=== PATIENT | male | born 1965 | race American Indian/Alaskan Native ===

== ENCOUNTER 2017-06-16 19:59 | Inpatient (IN) | payer OTHER ==
[2017-06-16] MEDS ORDERED: Iohexol 240 (50 ml) PO ONE (20:20)
[2017-06-16] MEDS ORDERED: Sodium Chloride 0.9% 1,000 ML IV STA (20:21)
[2017-06-16 20:44] LABS: BASO # 0.1 K/uL (0.0-0.2); BASO % 0.5 % (0.0-2.0); EOS # 0.1 K/uL (0.0-0.7); EOS % 0.4 % (0.0-4.0); HEMATOCRIT 45.7 % (35.0-51.0); LYMPH # 1.6 K/uL (1.0-4.3); LYMPH % 11.7 % (20.0-40.0); MEAN CELL VOLUME 92.9 fl (80.0-94.0); MEAN CORPUSCULAR HEMOGLOBIN 31.4 pg (27.0-31.0); MEAN CORPUSCULAR HGB CONC 33.7 g/dL (33.0-37.0); MONO # 0.9 K/uL (0.0-0.8); MONO % 6.7 % (0.0-10.0); NEUT # 11.2 K/uL (1.8-7.0); NEUT % 80.7 % (50.0-75.0); RED CELL DISTRIBUTION WIDTH 12.5 % (11.5-14.5); WHITE BLOOD COUNT 13.9 K/uL (4.8-10.8)
--- NOTE | 2017-06-16 20:50 | ED PDOC ---
HPI: Abdomen Time Seen by Provider: 06/16/17 20:08 Chief Complaint (Nursing): Abdominal Pain Chief Complaint (Provider): Abdominal pain History Per: Patient History/Exam Limitations: no limitations Onset/Duration Of Symptoms: Days (6) Additional Complaint(s): Patient is a 52 y/o male with a past medical history of hemorrhoids presenting to the emergency department for abdominal pain ongoing for six days. Reports that the pain began in the periumbilical area but sometimes occurs in his back or his right and left lower abdominal quadrants. Further reports initially having a good appetite but has been changing to a bland food intake in an attempt to improve the pain. Notes taking [place] water and Magnesium citrate without any significant relief. Denies fever, chills, urinary symptoms, nausea, vomiting, constipation, diarrhea, or other complaints. PCP none reported. Past Medical History Reviewed: Historical Data, Nursing Documentation, Vital Signs Vital Signs: Last Vital Signs Temp 98.6 F 06/17/17 15:32 Pulse 72 06/17/17 15:32 Resp 18 06/17/17 15:32 BP 146/78 06/17/17 15:32 Pulse Ox 100 06/17/17 16:11 - Medical History Other PMH: Hemorrhoids - Surgical History Other surgeries: Hemorrhoid surgery - Family History Family History: States: No Known Family Hx - Social History Current smoker - smoking cessation education provided: No Ex-Smoker (has not smoked in the last 12 months): No Alcohol: Social Drugs: Denies - Home Medications Home Medications: Ambulatory Orders Medication Instructions Recorded No Known Home Med 06/17/17 - Allergies Allergies/Adverse Reactions: Allergies Allergy/AdvReac Type Severity Reaction Status Date / Time No Known Allergies Allergy Verified 06/16/17 20:01 Review of Systems ROS Statement: Except As Marked, All Systems Reviewed And Found Negative Constitutional: Negative for: Fever, Chills Gastrointestinal: Positive for: Abdominal Pain. Negative for: Nausea, Vomiting , Diarrhea, Constipation Genitourinary Male: Negative for: Dysuria, Frequency, Hematuria Physical Exam - Reviewed Nursing Documentation Reviewed: Yes Vital Signs Reviewed: Yes - Physical Exam Appears: Positive for: Non-toxic, No Acute Distress Head Exam: Positive for: ATRAUMATIC, NORMOCEPHALIC Skin: Positive for: Warm, Dry Eye Exam: Positive for: EOMI, PERRL ENT: Negative for: Pharyngeal Erythema, Tonsillar Exudate Neck: Positive for: Painless ROM, Supple Cardiovascular/Chest: Positive for: Regular Rate, Rhythm, Chest Non Tender. Negative for: Murmur Respiratory: Positive for: Normal Breath Sounds. Negative for: Respiratory Distress Gastrointestinal/Abdominal: Positive for: Soft, Tenderness (RLQ and suprapubic ttp). Negative for: Mass, Distended, Guarding, Rebound Back: Positive for: Normal Inspection. Negative for: Decreased ROM Extremity: Positive for: Normal ROM. Negative for: Deformity Lymphatic: Negative for: Adenopathy Neurologic/Psych: Positive for: Alert. Negative for: Motor/Sensory Deficits - Laboratory Results Result Diagrams: 06/17/17 07:50 06/17/17 07:50 - ECG O2 Sat by Pulse Oximetry: 100 (RA) Pulse Ox Interpretation: Normal Medical Decision Making Medical Decision Making: Time: 20:20 Initial impression: Abdominal pain Differential diagnoses include but are not limited to appendicitis, colitis, diverticulitis, enteritis, and mesenteritis. Initial plan: Abdominal/pelvic CT scan ED Urine Dipstick Iohexol 50 mL PO Toradol 15 mL PO Normal Saline 1 L IV Reevaluation Time: 23:11 CT AP IMPRESSION: 1. Rim-enhancing fluid collection within the right lower quadrant consistent with an abscess. Given nonvisualized appendix, this is concerning for acute appendicitis with perforation and abscess formation. RECOMMEND surgical consultation. 2. Wall thickening of the terminal ileum is likely reactive. 3. Urinary bladder wall thickening is likely accentuated by bladder decompression. Correlate also for cystitis. 4. Mild elevation of the right ureter and renal pelvis is likely related to the inflammatory process within the right lower quadrant. ALVARO Lopez Surgery oncall ALVARO Reid Hospitalist ALVARO Mera president [place] DW pt findings and plan of care. IV antibiotics, NPO, IVF. Scribe Attestation: Documented by Garima Sommers, acting as a scribe for Stefanie Guerra MD. Provider Scribe Attestation: All medical record entries made by the Scribe were at my direction and personally dictated by me. I have reviewed the chart and agree that the record accurately reflects my personal performance of the history, physical exam, medical decision making, and the department course for this patient. I have also personally directed, reviewed, and agree with the discharge instructions and disposition. Disposition - Clinical Impression Clinical Impression: Appendicitis with abscess - Patient ED Disposition Is Patient to be Admitted: Yes Counseled Patient/Family Regarding: Studies Performed, Diagnosis - Disposition Disposition Time: 23:00 Condition: GUARDED - Pt Status Changed To: Hospital Disposition Of: Inpatient - Admit Certification Admit to Inpatient:: After my assessment, the patient will require hospitalization for at least two midnights. This is because of the severity of symptoms shown, intensity of services needed, and/or the medical risk in this patient being treated as an outpatient. - POA Present On Arrival: None
[2017-06-16 20:56] LABS: ALB/GLOB RATIO 1.1 (1.0-2.1); ALKALINE PHOSPHATASE 83 U/L (38-126); ALT/SGPT 34 U/L (21-72); AST/SGOT 25 U/L (17-59); BILIRUBIN,TOTAL 1.4 mg/dl (0.2-1.3); BLOOD UREA NITROGEN 12 mg/dl (9-20); CALCIUM 9.3 mg/dL (8.4-10.2); CARBON DIOXIDE 32 mmol/L (22-30); CHLORIDE 98 mmol/L (98-107); GFR AFRICAN-AMERICAN > 60; GLUCOSE,RANDOM 108 mg/dL (75-110); LIPASE 18 U/L (23-300); POTASSIUM 4.4 MMOL/L (3.6-5.0); SODIUM 141 mmol/l (132-148); TOTAL PROTEIN 8.1 G/DL (6.3-8.2)
[2017-06-16] MEDS ORDERED: Iohexol 300 100 ML IJ ONE (21:10)
[2017-06-16] MEDS ORDERED: Sodium Chloride 0.9% 50 ML IV ONE (21:11)
[2017-06-16] MEDS ORDERED: Piperacillin/Tazobact 3.375 GM in Sodium Chloride 0.9% 100 ML IVPB STA (23:13)
--- NOTE | 2017-06-16 23:37 | CP.PCM.HP ---
History of Present Illness - History of Present Illness History of Present Illness: PCP: NONE Chief Complaint: Abdominal pain The patient was seen and examined in the ED HPI: This is a 52 years old male with past hx of Hemorrhoides who comes with six days of RLQ abdominal pain radiating across the lower abdomen and the periumbilical region. The pain is constant with no relief from [place] or Magnesium Citrate. no fever, chills, nausea, vomits, dysuria nor urinary frequencies. PMH: Hemorrhoides PSH: Hemorrhoidectomy SH: No smoking of Cigarettes; No illegal drug use;Occasional Alcohol; live alone FH: States: No Known Family Hx Allergies: NKDA Medication: No Medication use Present on Admission - Present on Admission Any Indicators Present on Admission: No History of DVT/PE: No History of Uncontrolled Diabetes: No Urinary Catheter: No Decubitus Ulcer Present: No Review of Systems - Constitutional Constitutional: absent: Chills, Fatigue, Fever, Headache, Lethargy - EENT Eyes: Requires Corrective Lenses. absent: Diplopia, Floaters Ears: absent: Decreased Hearing, Ear Discharge, Ear Pain, Tinnitus Nose/Mouth/Throat: absent: Epistaxis, Nasal Congestion, Sinus Pain, Sinus Pressure - Cardiovascular Cardiovascular: absent: Chest Pain, Dyspnea, Edema - Respiratory Respiratory: absent: Cough, Dyspnea, Wheezing, Stridor - Gastrointestinal Additional comments: Periumbilical abdominal pain radiating to RLQ and acrss the lower abdomen - Genitourinary Genitourinary: absent: Dysuria, Flank Pain, Hematuria, Urinary Frequency - Musculoskeletal Musculoskeletal: absent: Arthralgias, Back Pain, Muscle Weakness, Myalgias - Integumentary Integumentary: absent: Pruritus, Rash, Skin Ulcer, Sores, Striae, Swelling - Neurological Neurological: absent: Confusion, Dizziness, Focal Weakness, Weakness - Psychiatric Psychiatric: absent: Anxiety, Depression, Panic Attacks - Endocrine Endocrine: absent: Palpitations, Polydipsia, Polyphagia, Polyuria - Hematologic/Lymphatic Hematologic: absent: Easy Bleeding, Easy Bruising Past Patient History - Past Medical History & Family History Past Medical History?: No - Past Social History Smoking Status: Never Smoked Alcohol: Social Drugs: Denies Home Situation {Lives}: Alone - CARDIAC Hx Cardiac Disorders: No - PULMONARY Hx Respiratory Disorders: No - NEUROLOGICAL Hx Neurological Disorder: No - HEENT Hx HEENT Problems: No - RENAL Hx Chronic Kidney Disease: No - ENDOCRINE/METABOLIC Hx Endocrine Disorders: No - HEMATOLOGICAL/ONCOLOGICAL Hx Blood Disorders: No - INTEGUMENTARY Hx Basil Cell: No - MUSCULOSKELETAL/RHEUMATOLOGICAL Hx Musculoskeletal Disorders: No - GASTROINTESTINAL Hx Gastrointestinal Disorders: No - GENITOURINARY/GYNECOLOGICAL Hx Genitourinary Disorders: No - PSYCHIATRIC Hx Psychophysiologic Disorder: No Hx Substance Use: No - SURGICAL HISTORY Hx Surgeries: Yes Other/Comment: hemorrhoid surgery - ANESTHESIA Hx Anesthesia: Yes Hx Anesthesia Reactions: No Meds Allergies/Adverse Reactions: Allergies Allergy/AdvReac Type Severity Reaction Status Date / Time No Known Allergies Allergy Verified 06/16/17 20:01 Physical Exam - Constitutional Appears: No Acute Distress - Head Exam Head Exam: ATRAUMATIC, NORMAL INSPECTION, NORMOCEPHALIC - Eye Exam Eye Exam: EOMI, Normal appearance Pupil Exam: NORMAL ACCOMODATION, PERRL - ENT Exam ENT Exam: Mucous Membranes Moist, Normal Exam, Normal External Ear Exam, Normal Oropharynx - Neck Exam Neck exam: Positive for: Full Rom, Normal Inspection. Negative for: Lymphadenopathy, Tenderness - Respiratory Exam Respiratory Exam: Clear to Auscultation Bilateral. absent: Rales, Rhonchi, Wheezes - Cardiovascular Exam Cardiovascular Exam: REGULAR RHYTHM, RRR, +S1, +S2. absent: JVD, Rubs - GI/Abdominal Exam Additional comments: Full, Soft Tender at RLQ, no guarding no rebound tenderness - Rectal Exam Rectal Exam: Deferred - Extremities Exam Extremities exam: Positive for: full ROM, normal inspection. Negative for: calf tenderness, joint swelling, pedal edema - Neurological Exam Neurological exam: Alert, CN II-XII Intact, Oriented x3, Reflexes Normal - Psychiatric Exam Psychiatric exam: Normal Affect, Normal Mood - Skin Skin Exam: Dry, Intact, Normal Color, Warm Results - Vital Signs Recent Vital Signs: Last Vital Signs Temp 99.2 F 06/16/17 23:22 Pulse 77 06/16/17 23:22 Resp 16 06/16/17 23:22 BP 136/61 06/16/17 23:22 Pulse Ox 100 06/16/17 23:22 - Labs Result Diagrams: 06/16/17 20:26 06/16/17 20:26 Labs: Laboratory Results - last 24 hr 06/16/17 06/16/17 20:26 20:26 WBC 13.9 H RBC 4.92 Hgb 15.4 Hct 45.7 MCV 92.9 MCH 31.4 H MCHC 33.7 RDW 12.5 Plt Count 259 MPV 8.0 Neut % (Auto) 80.7 H Lymph % (Auto) 11.7 L [place] % (Auto) 6.7 Eos % (Auto) 0.4 Baso % (Auto) 0.5 Neut # 11.2 H Lymph # 1.6 [place] # 0.9 H Eos # 0.1 Baso # 0.1 Sodium 141 Potassium 4.4 Chloride 98 Carbon Dioxide 32 H Anion Gap 15 BUN 12 Creatinine 0.8 Est GFR ( Amer) > 60 Est GFR (Non-Af Amer) > 60 Random Glucose 108 Calcium 9.3 Total Bilirubin 1.4 H AST 25 ALT 34 Alkaline Phosphatase 83 Total Protein 8.1 Albumin 4.2 Globulin 3.9 Albumin/Globulin Ratio 1.1 Lipase 18 L - EKG Data EKG comments: NSR 78/min T wave invertion in leads III and aVl - Imaging and Cardiology CT scan - abdomen Status: Report reviewed by me Additional comment: EXAM: CT Abdomen and Pelvis With Intravenous Contrast FINDINGS: Lower thorax: Subpleural reticular opacities within the dependent aspect of the lower lobes may represent subsegmental atelectasis or scarring. ABDOMEN: Liver: The liver is normal in appearance. Gallbladder and bile ducts: The gallbladder is contracted but otherwise normal. No calcified stones. No ductal dilation. Pancreas: The pancreas is normal. No ductal dilation. Spleen: The spleen is normal. Adrenals: The adrenal glands are normal. Kidneys and ureters: The kidneys are normal. Mild dilation of the right ureter and right renal pelvis. Stomach and bowel: There is a moderate amount of stool present within the colon. Contrast is present within the stomach and proximal small bowel. The terminal ileum is not opacified with mild terminal ileal wall thickening. No obstruction. Appendix: The appendix is not identified. PELVIS: Bladder: The urinary bladder is decompressed with mild wall thickening. Reproductive: The prostate gland demonstrates nonspecific parenchymal calcifications. ABDOMEN and PELVIS: Intraperitoneal space: There is a rim-enhancing fluid collection within the right lower quadrant which measures approximately 3.5 cm x 7.1 cm x 5.2 cm. There is surrounding inflammatory fat stranding. No pneumoperitoneum. Bones/joints: Small posterior disc osteophyte complexes at L4-5 and L5. No acute osseous abnormality. No dislocation. Soft tissues: Normal. Vasculature: Normal. No abdominal aortic aneurysm. Lymph nodes: Normal. No enlarged lymph nodes. IMPRESSION: 1. Rim-enhancing fluid collection within the right lower quadrant consistent with an abscess. Given nonvisualized appendix, this is concerning for acute appendicitis with perforation and abscess formation. RECOMMEND surgical consultation. 2. Wall thickening of the terminal ileum is likely reactive. 3. Urinary bladder wall thickening is likely accentuated by bladder decompression. Correlate also for cystitis. 4. Mild elevation of the right ureter and renal pelvis is likely related to the inflammatory process within the right lower quadrant. Assessment & Plan - Assessment and Plan (Free Text) Assessment: #. Acute Appendicitis #. Leukocytosis Plan: 52 years old male with past hx of Hemorrhoides who comes with six days of RLQ abdominal pain radiating across the lower abdomen and the periumbilical region. The pain is constant with no relief from [place] or Magnesium Citrate. no fever , chills, nausea, vomits, dysuria nor urinary frequencies. #. Acute Appendicitis with perforation and Abscess formation - Consult Dr Lopez surgeon . - Surgery is recommending IR drainage of the Appendicial Abscess - consult Dr Harrell ID - Zosyn - Metronidazole - Pain management with Toradol - IV fluids #. Leukocytosis secondary to the appendicial abscess - Follow WBC #. Stress Ulcer prophylaxis with Pepcid #. DVT prophylaxis with SCD #. Code Status: Full - Date & Time Date: 06/16/17 Time: 23:37
--- NOTE | 2017-06-17 00:03 | CP.PCM.CON ---
History of Present Illness - History of Present Illness History of Present Illness: General Surgery Consult Note for Dr. Lopez Reason for Consult: Ruptured appendicitis 52 M with no significant PMH presents to ED with complaint of abdominal pain for about 6 days. Patient states that pain occurred suddenly last week. He believed that he ate something bad so he decided to try drinking 7 up and taking bhavana seltzer. Over the 6 days, the pain had gotten progressively worse. He states that he has never experienced this pain before. The pain increased in intensitiy the most the day of admission while at work and he decided to be seen. He rates pain as severe. He describes the pain as constant and sharp in RLQ of abdomen with radiation to periumbilical region and across lower abdomen. He denies any alleviating or exacerbating factors. Denies fever/chills, diaphoresis, cp, sob, nausea/vomiting, diarrhea, dysuria and urinary frequency. PMH: Hemorrhoids Meds: Denies Allergy: NKDA PSH: Hemorrhoidectomy FH: unknown SH: Denies tobacco/illicit drug use; Ocassional EtOH; lives alone; works as it security architect at [employer] Review of Systems - Review of Systems All systems: reviewed and no additional remarkable complaints except (abdominal pain) Past Patient History - Past Social History Alcohol: Social Drugs: Denies - PSYCHIATRIC Hx Substance Use: No - SURGICAL HISTORY Hx Surgeries: Yes Other/Comment: hemorrhoid surgery - ANESTHESIA Hx Anesthesia: Yes Hx Anesthesia Reactions: No Meds Allergies/Adverse Reactions: Allergies Allergy/AdvReac Type Severity Reaction Status Date / Time No Known Allergies Allergy Verified 06/16/17 20:01 - Medications Medications: Current Medications Piperacillin Sod/Tazobactam (Sod 3.375 gm/ Sodium Chloride) 100 mls @ 100 mls/ hr IVPB STAT STA PRN Reason: Protocol Stop: 06/17/17 00:12 Last Admin: 06/16/17 23:47 Dose: 100 mls/hr Dextrose/Sodium Chloride (Dextrose 5%-0.9% Ns 500 Ml) 1,000 mls @ 100 mls/hr IV .Q10H [facility] Last Admin: 06/16/17 23:48 Dose: 100 mls/hr Physical Exam - Constitutional Appears: No Acute Distress, Younger Than Stated Age - Head Exam Head Exam: ATRAUMATIC, NORMOCEPHALIC - Eye Exam Eye Exam: EOMI, Normal appearance Pupil Exam: PERRL - ENT Exam ENT Exam: Mucous Membranes Moist - Neck Exam Neck exam: Positive for: Full Rom - Respiratory Exam Respiratory Exam: NORMAL BREATHING PATTERN - Cardiovascular Exam Cardiovascular Exam: REGULAR RHYTHM - GI/Abdominal Exam GI & Abdominal Exam: Distended (mild), Normal Bowel Sounds, Soft, Tenderness ( RLQ). absent: Firm, Guarding, Hernia, Mass, Rebound, Rigid - Extremities Exam Extremities exam: Positive for: normal capillary refill, pedal pulses present - Back Exam Back exam: absent: CVA tenderness (L), CVA tenderness (R) - Neurological Exam Neurological exam: Alert, CN II-XII Intact, Oriented x3 - Psychiatric Exam Psychiatric exam: Normal Affect, Normal Mood - Skin Skin Exam: Dry, Intact, Normal Color, Warm Results - Vital Signs Recent Vital Signs: Last Vital Signs Temp 99.2 F 06/16/17 23:22 Pulse 77 06/16/17 23:22 Resp 16 06/16/17 23:22 BP 136/61 06/16/17 23:22 Pulse Ox 100 06/16/17 23:37 - Labs Result Diagrams: 06/17/17 07:50 06/17/17 07:50 Labs: Laboratory Results - last 24 hr 06/16/17 06/16/17 06/16/17 20:26 20:26 23:18 WBC 13.9 H RBC 4.92 Hgb 15.4 Hct 45.7 MCV 92.9 MCH 31.4 H MCHC 33.7 RDW 12.5 Plt Count 259 MPV 8.0 Neut % (Auto) 80.7 H Lymph % (Auto) 11.7 L [place] % (Auto) 6.7 Eos % (Auto) 0.4 Baso % (Auto) 0.5 Neut # 11.2 H Lymph # 1.6 [place] # 0.9 H Eos # 0.1 Baso # 0.1 Sodium 141 Potassium 4.4 Chloride 98 Carbon Dioxide 32 H Anion Gap 15 BUN 12 Creatinine 0.8 Est GFR ( Amer) > 60 Est GFR (Non-Af Amer) > 60 Random Glucose 108 Lactic Acid Calcium 9.3 Total Bilirubin 1.4 H AST 25 ALT 34 Alkaline Phosphatase 83 Total Protein 8.1 Albumin 4.2 Globulin 3.9 Albumin/Globulin Ratio 1.1 Lipase 18 L BBK History Checked No verified bt 06/16/17 23:41 WBC RBC Hgb Hct MCV MCH MCHC RDW Plt Count MPV Neut % (Auto) Lymph % (Auto) [place] % (Auto) Eos % (Auto) Baso % (Auto) Neut # Lymph # [place] # Eos # Baso # Sodium Potassium Chloride Carbon Dioxide Anion Gap BUN Creatinine Est GFR ( Amer) Est GFR (Non-Af Amer) Random Glucose Lactic Acid 0.9 Calcium Total Bilirubin AST ALT Alkaline Phosphatase Total Protein Albumin Globulin Albumin/Globulin Ratio Lipase BBK History Checked Assessment & Plan - Assessment and Plan (Free Text) Plan: 52 M with ruptured appendicitis -IV antibiotics -IV fluids -Analgesics/Anti-emetics PRN -IR consult for drainage of appendiceal abscess -Discussed with Dr. John Mera PGY1
[2017-06-17 00:34] LABS: PARTIAL THROMBOPLASTIN TIME 35.4 Seconds (25.6-37.1)
[2017-06-17] MEDS: Piperacillin/Tazobact 3.375 GM in Sodium Chloride 0.9% 100 ML IVPB SCH ×4 (03:49→21:07)
[2017-06-17] MEDS: metroNIDAZOLE 500mg/100ml NS 100 ML IVPB SCH ×2 (06:44→16:42)
[2017-06-17 07:55] LABS: BASO % 0.2 % (0.0-2.0); EOS # 0.1 K/uL (0.0-0.7); EOS % 0.7 % (0.0-4.0); HEMATOCRIT 42.6 % (35.0-51.0); LYMPH # 1.4 K/uL (1.0-4.3); LYMPH % 11.2 % (20.0-40.0); MEAN CELL VOLUME 93.2 fl (80.0-94.0); MEAN CORPUSCULAR HEMOGLOBIN 31.1 pg (27.0-31.0); MEAN CORPUSCULAR HGB CONC 33.4 g/dL (33.0-37.0); MEAN PLATELET VOLUME 8.1 fl (7.2-11.7); MONO # 0.9 K/uL (0.0-0.8); MONO % 7.8 % (0.0-10.0); NEUT # 9.8 K/uL (1.8-7.0); NEUT % 80.1 % (50.0-75.0); NRBC % 0.1 % (0.0-0.0); RED CELL DISTRIBUTION WIDTH 12.7 % (11.5-14.5); WHITE BLOOD COUNT 12.2 K/uL (4.8-10.8)
[2017-06-17 08:24] LABS: BLOOD UREA NITROGEN 12 mg/dl (9-20); CALCIUM 8.7 mg/dL (8.4-10.2); CARBON DIOXIDE 30 mmol/L (22-30); CHLORIDE 101 mmol/L (98-107); GFR AFRICAN-AMERICAN > 60; GLUCOSE,RANDOM 101 mg/dL (75-110); POTASSIUM 4.6 MMOL/L (3.6-5.0); SODIUM 139 mmol/l (132-148)
--- NOTE | 2017-06-17 08:37 | CARD ---
APPROVED REPORT EKG Measurement Heart [id number] ME [id number] [id number] <Conclusion> Normal sinus rhythm Normal ECG
--- NOTE | 2017-06-17 08:56 | CT ---
PROCEDURE: CT Abdomen and Pelvis with contrast HISTORY: BLQ R>L pain COMPARISON: None. TECHNIQUE: Contrast dose: 95 mL Omnipaque 300 Radiation dose: Total exam DLP = 591.2 mGy-cm. This CT exam was performed using one or more of the following dose reduction techniques: Automated exposure control, adjustment of the mA and/or kV according to patient size, and/or use of iterative reconstruction technique. FINDINGS: LOWER THORAX: Unremarkable. LIVER: Too small to characterize 6 millimeter hypodensity in segment 1 (series 3, image 25). No ductal dilatation. GALLBLADDER AND BILE DUCTS: Unremarkable. PANCREAS: Unremarkable. No gross lesion or ductal dilatation. SPLEEN: Unremarkable. ADRENALS: Unremarkable. No mass. KIDNEYS AND URETERS: Unremarkable. No hydronephrosis. No solid mass. VASCULATURE: Unremarkable. No aortic aneurysm. BOWEL: Marked thickening of the terminal ileum secondary to adjacent appendicular process. The terminal ileum drapes across the appendicular process anteriorly. Mild thickening versus underdistention of the sigmoid colon, which may be reactive. No obstruction. APPENDIX: Not visualized. In the region of the appendix, there is a lobulated, rim enhancing fluid collection measuring 4.5 x 3.1 centimeter (series 3, image 133) most likely representing perforated appendicitis with appendicular abscess. Small adjacent microabscesses may be present. PERITONEUM: Unremarkable. No free fluid. No free air. LYMPH NODES: Unremarkable. No enlarged lymph nodes. BLADDER: Unremarkable. REPRODUCTIVE: Unremarkable. BONES: No acute fracture. OTHER FINDINGS: None. IMPRESSION: Perforated appendicitis with 4.5 x 3.1 centimeter lobulated abscess. The entirety of the abscess is located in the right lower quadrant, posterior to a loop of thickened terminal ileum. Terminal ileal and sigmoid thickening is likely reactive. Too small to characterize 6 millimeter hepatic hypodensity.
--- NOTE | 2017-06-17 09:30 | RAD ---
HISTORY: preop COMPARISON: No prior. FINDINGS: LUNGS: No active pulmonary disease. PLEURA: No significant pleural effusion identified, no pneumothorax apparent. CARDIOVASCULAR: Normal. OSSEOUS STRUCTURES: No significant abnormalities. VISUALIZED UPPER ABDOMEN: Normal. OTHER FINDINGS: Excreted intravenous contrast in the bilateral renal collecting systems. IMPRESSION: No active disease.
--- NOTE | 2017-06-17 10:44 | CP.PCM.PN ---
Subjective - Date & Time of Evaluation Date of Evaluation: 06/17/17 Time of Evaluation: 10:15 - Subjective Subjective: Pt has no fever at present RLQ pain better no N/V no CP no SOB no diarrhea nor constipation Objective - Vital Signs/Intake and Output Vital Signs (last 24 hours): Temp Pulse Resp BP Pulse Ox 97.7 F 62 20 124/64 96 06/17/17 08:13 06/17/17 08:13 06/17/17 08:13 06/17/17 08:13 06/17/17 08:13 - Medications Medications: Current Medications Famotidine (Pepcid) 20 mg IVP Q12 DAT Dextrose/Sodium Chloride (Dextrose 5%-0.9% Ns 500 Ml) 1,000 mls @ 100 mls/hr IV .Q10H DAT Last Admin: 06/16/17 23:48 Dose: 100 mls/hr Piperacillin Sod/Tazobactam (Sod 3.375 gm/ Sodium Chloride) 100 mls @ 100 mls/ hr IVPB Q6 DAT PRN Reason: Protocol Last Admin: 06/17/17 10:22 Dose: 100 mls/hr Metronidazole (Flagyl 500mg/100ml Ns) 100 mls @ 100 mls/hr IVPB Q8 DAT PRN Reason: Protocol Last Admin: 06/17/17 06:44 Dose: 100 mls/hr Ketorolac Tromethamine (Toradol) 15 mg IVP Q6 PRN PRN Reason: Pain, moderate (4-7) Last Admin: 06/17/17 01:49 Dose: 15 mg Ketorolac Tromethamine (Toradol) 30 mg IVP Q6 PRN PRN Reason: Pain, severe (8-10) - Labs Labs: 06/17/17 07:50 06/17/17 07:50 PT 15.3 Seconds (9.8-13.1) H 06/16/17 23:41 INR 1.4 (0.9-1.2) H 06/16/17 23:41 APTT 35.4 Seconds (25.6-37.1) 06/16/17 23:41 - Constitutional Appears: No Acute Distress - Head Exam Head Exam: NORMAL INSPECTION, NORMOCEPHALIC - Eye Exam Eye Exam: EOMI, Normal appearance, PERRL Pupil Exam: NORMAL ACCOMODATION - ENT Exam ENT Exam: Mucous Membranes Moist, Normal External Ear Exam - Neck Exam Neck Exam: Full ROM. absent: Meningismus - Respiratory Exam Respiratory Exam: NORMAL BREATHING PATTERN. absent: Rales, Respiratory Distress - Cardiovascular Exam Cardiovascular Exam: REGULAR RHYTHM, +S1, +S2 - GI/Abdominal Exam GI & Abdominal Exam: Soft, Tenderness (mild RLQ and hypogastric tenderness), Normal Bowel Sounds - Extremities Exam Extremities Exam: Full ROM, Normal Capillary Refill. absent: Calf Tenderness, Pedal Edema - Back Exam Back Exam: Full ROM. absent: CVA tenderness (L), CVA tenderness (R) - Neurological Exam Neurological Exam: Alert, Awake, CN II-XII Intact, Normal Gait, Oriented x3 Neuro motor strength exam: Left Upper Extremity: 5, Right Upper Extremity: 5, Left Lower Extremity: 5, Right Lower Extremity: 5 - Psychiatric Exam Psychiatric exam: Normal Affect, Normal Mood - Skin Skin Exam: Dry, Intact, Normal Color, Warm Assessment and Plan (1) Acute appendicitis with perforation and peritoneal abscess Status: Acute - Assessment and Plan (Free Text) Assessment: 52 y/o gent , no significant PMH, presented in the ED with six days of RLQ abdominal pain radiating across the lower abdomen and the periumbilical region. The pain is constant with no relief from [place] or Magnesium Citrate. no fever , chills, nausea, vomits, dysuria nor urinary frequencies. CT of the Abdomen: Perforated appendicitis with 4.5 x 3.1 centimeter lobulated abscess. The entirety of the abscess is located in the right lower quadrant, posterior to a loop of thickened terminal ileum. Terminal ileal and sigmoid thickening is likely reactive. Too small to characterize 6 millimeter hepatic hypodensity. 1. Acute Perforated Appenicitis with abscess formation - pt was admitted to Med Surg - started on IVF hydration - on IV Zosyn and Flagyl -Pain mgt -Surgery consulted- recommended Drainage of abscess by IR. Dr Lunsford consulted - abscess is posterior to the bowels and not amenable by CT drainage - will continue IV antibiotics - plan for surgery at a later date - start Clear liiquid diet for now, advance as tolerated DVT proph - Lovenox
--- NOTE | 2017-06-17 10:53 | PCM.IRP ---
History of Present Illness - History of Present Illness History of Present Illness: Mr. Bonilla CT reviewed. Pt with perforated appendicitis with abscess. Abscess is posterior to bowel and not amenable to CT guided drainage. Recommend repeating CT in a couple of days to assess if abscess becomes more organized and larger. Will continue to follow. Objective - Vital Signs/Intake and Output Vital Signs (last 24 hours): Vital Signs - 24 hr 06/16/17 06/16/17 06/16/17 20:01 23:22 23:37 Temperature 99.8 F H 99.2 F Pulse Rate 95 H 77 Respiratory 16 16 Rate Blood Pressure 162/72 H 136/61 O2 Sat by Pulse 100 100 100 Oximetry 06/17/17 06/17/17 06/17/17 00:13 00:39 08:13 Temperature 99.2 F 99.1 F 97.7 F Pulse Rate 77 76 62 Respiratory 16 19 20 Rate Blood Pressure 136/61 149/81 124/64 O2 Sat by Pulse 99 96 Oximetry Intake and Output (last 12 hours): Intake & Output 06/16/17 06/17/17 06/17/17 18:59 06:59 18:59 Weight 178 lb - Medications Medications: Current Medications Famotidine (Pepcid) 20 mg IVP Q12 DAT Dextrose/Sodium Chloride (Dextrose 5%-0.9% Ns 500 Ml) 1,000 mls @ 100 mls/hr IV .Q10H [facility] Last Admin: 06/17/17 10:44 Dose: Not Given Piperacillin Sod/Tazobactam (Sod 3.375 gm/ Sodium Chloride) 100 mls @ 100 mls/ hr IVPB Q6 DAT PRN Reason: Protocol Last Admin: 06/17/17 10:22 Dose: 100 mls/hr Metronidazole (Flagyl 500mg/100ml Ns) 100 mls @ 100 mls/hr IVPB Q8 DAT PRN Reason: Protocol Last Admin: 06/17/17 06:44 Dose: 100 mls/hr Ketorolac Tromethamine (Toradol) 15 mg IVP Q6 PRN PRN Reason: Pain, moderate (4-7) Last Admin: 06/17/17 01:49 Dose: 15 mg Ketorolac Tromethamine (Toradol) 30 mg IVP Q6 PRN PRN Reason: Pain, severe (8-10) - Labs Labs (last 24 hours): Laboratory Results - last 24 hr 06/16/17 06/16/17 06/16/17 20:26 20:26 23:18 WBC 13.9 H RBC 4.92 Hgb 15.4 Hct 45.7 MCV 92.9 MCH 31.4 H MCHC 33.7 RDW 12.5 Plt Count 259 MPV 8.0 Neut % (Auto) 80.7 H Lymph % (Auto) 11.7 L [place] % (Auto) 6.7 Eos % (Auto) 0.4 Baso % (Auto) 0.5 Neut # 11.2 H Lymph # 1.6 [place] # 0.9 H Eos # 0.1 Baso # 0.1 PT INR APTT Sodium 141 Potassium 4.4 Chloride 98 Carbon Dioxide 32 H Anion Gap 15 BUN 12 Creatinine 0.8 Est GFR ( Amer) > 60 Est GFR (Non-Af Amer) > 60 Random Glucose 108 Lactic Acid Calcium 9.3 Total Bilirubin 1.4 H AST 25 ALT 34 Alkaline Phosphatase 83 Total Protein 8.1 Albumin 4.2 Globulin 3.9 Albumin/Globulin Ratio 1.1 Lipase 18 L Blood Type A POSITIVE Blood Type Confirm Antibody Screen Negative BBK History Checked No verified bt 06/16/17 06/16/17 06/17/17 23:41 23:41 00:01 WBC RBC Hgb Hct MCV MCH MCHC RDW Plt Count MPV Neut % (Auto) Lymph % (Auto) [place] % (Auto) Eos % (Auto) Baso % (Auto) Neut # Lymph # [place] # Eos # Baso # PT 15.3 H INR 1.4 H APTT 35.4 Sodium Potassium Chloride Carbon Dioxide Anion Gap BUN Creatinine Est GFR ( Amer) Est GFR (Non-Af Amer) Random Glucose Lactic Acid 0.9 Calcium Total Bilirubin AST ALT Alkaline Phosphatase Total Protein Albumin Globulin Albumin/Globulin Ratio Lipase Blood Type Blood Type Confirm A POSITIVE Antibody Screen BBK History Checked 06/17/17 06/17/17 07:50 07:50 WBC 12.2 H RBC 4.58 Hgb 14.2 Hct 42.6 MCV 93.2 MCH 31.1 H MCHC 33.4 RDW 12.7 Plt Count 232 MPV 8.1 Neut % (Auto) 80.1 H Lymph % (Auto) 11.2 L [place] % (Auto) 7.8 Eos % (Auto) 0.7 Baso % (Auto) 0.2 Neut # 9.8 H Lymph # 1.4 [place] # 0.9 H Eos # 0.1 Baso # 0.0 PT INR APTT Sodium 139 Potassium 4.6 Chloride 101 Carbon Dioxide 30 Anion Gap 13 BUN 12 Creatinine 1.0 Est GFR ( Amer) > 60 Est GFR (Non-Af Amer) > 60 Random Glucose 101 Lactic Acid Calcium 8.7 Total Bilirubin AST ALT Alkaline Phosphatase Total Protein Albumin Globulin Albumin/Globulin Ratio Lipase Blood Type Blood Type Confirm Antibody Screen BBK History Checked
--- NOTE | 2017-06-17 13:14 | CP.PCM.CON ---
History of Present Illness - History of Present Illness History of Present Illness: 52 M with no significant PMH presents to ED with complaint of abdominal pain for about 6 days. Patient states that pain occurred suddenly last week. He believed that he ate something bad so he decided to try drinking 7 up and taking bhavana seltzer. Over the 6 days, the pain had gotten progressively worse. He states that he has never experienced this pain before. The pain increased in intensitiy the most the day of admission while at work and he decided to be seen. He rates pain as severe. He describes the pain as constant and sharp in RLQ of abdomen with radiation to periumbilical region and across lower abdomen. He denies any alleviating or exacerbating factors. Denies fever/chills, diaphoresis, cp, sob, nausea/vomiting, diarrhea, dysuria and urinary frequency. referred for id eval and antibiotic management awaiting IR drainage abscess PMH: Hemorrhoids Meds: Denies Allergy: NKDA PSH: Hemorrhoidectomy FH: unknown SH: Denies tobacco/illicit drug use; Ocassional EtOH; lives alone; works as armed security professional at [employer] Review of Systems - Constitutional Constitutional: As Per HPI, Anorexia, Fever, Malaise - EENT Eyes: absent: As Per HPI, Blind Spots, Blurred Vision, Change in Vision, Decreased Night Vision, Diplopia, Discharge, Dry Eye, Exophthalmos, Floaters, Irritation, Itchy Eyes, Loss of Peripheral Vision, Pain, Photophobia, Requires Corrective Lenses, Sees Flashes, Spots in Vision, Tunnel Vision, Other Visual Disturbances, Loss of Vision, Other Ears: absent: As Per HPI, Decreased Hearing, Ear Discharge, Ear Pain, Tinnitus, Abnormal Hearing, Disequilibrium, Dizziness, Other Nose/Mouth/Throat: absent: As Per HPI, Epistaxis, Nasal Congestion, Nasal Discharge, Nasal Obstruction, Nasal Trauma, Nose Pain, Post Nasal Drip, Sinus Pain, Sinus Pressure, Bleeding Gums, Change in Voice, Dental Pain, Dry Mouth, Dysphagia, Halitosis, Hoarsness, Lip Swelling, Mouth Lesions, Mouth Pain, Odynophagia, Sore Throat, Throat Swelling, Tongue Swelling, Facial Pain, Neck Pain, Neck Mass, Other - Cardiovascular Cardiovascular: absent: As Per HPI, Acrocyanosis, Chest Pain, Chest Pain at Rest , Chest Pain with Activity, Claudication, Diaphoresis, Dyspnea, Dyspnea on Exertion, Edema, Irregular Heart Rhythm, Pain Radiating to Arm/Neck/Jaw, Leg Edema, Leg Ulcers, Lightheadedness, Orthopnea, Palpitations, Paroxysmal Nocturnal Dyspnea, Pedal Edema, Radiating Pain, Rapid Heart Rate, Slow Heart Rate, Syncope, Other - Respiratory Respiratory: absent: As Per HPI, Cough, Dyspnea, Hemoptysis, Dyspnea on Exertion , Wheezing, Snoring, Stridor, Pain on Inspiration, Chest Congestion, Excessive Mucous Production, Change in Mucous Color, Pain with Coughing, Other - Gastrointestinal Gastrointestinal: As Per HPI - Genitourinary Genitourinary: absent: As Per HPI, Change in Urinary Stream, Difficulty Urinating, Dysuria, Flank Pain, Hematuria, Pyuria, Nocturia, Urinary Incontinence, Urinary Frequency, Urinary Hesitance, Urinary Urgency, Voiding Freq/Small Amts, Freq UTI, Hx Renal/Bladder Calculi, Hx /Renal Surgery, Bladder Distension, Other - Musculoskeletal Musculoskeletal: absent: As Per HPI, Abnormal Gait, Arthralgias, Atrophy, Back Pain, Deformity, Joint Swelling, Limited Range of Motion, Loss of Height, Muscle Cramps, Muscle Weakness, Myalgias, Neck Pain, Numbness, Radiating Pain into Limb, Stiffness, Tingling, Other - Integumentary Integumentary: absent: As Per HPI, Acne, Alopecia, Bleeding Lesions, Change in Hair, Change in Nails, Change in Pigmentation, Changing Lesions, Dry Skin, Erythema, Furuncle, Hirsutism, Lesions, New Lesions, Non-Healing Lesions, Photosensitivity, Pruritus, Rash, Skin Pain, Skin Ulcer, Sores, Striae, Swelling , Unusual Bruising, Wounds, Jaundice, Other - Neurological Neurological: absent: As Per HPI, Abnormal Gait, Abnormal Hearing, Abnormal Movements, Abnormal Speech, Behavioral Changes, Burning Sensations, Confusion, Convulsions, Disequilibrium, Dizziness, Numbness, Focal Weakness, Frequent Falls , Headaches, Lack of Coordination, Loss of Vision, Memory Loss, Paresthesias, Radicular Pain, Restless Legs, Sensory Deficit, Syncope, Tingling, Tremor, Vertigo, Weakness, Other Visual Disturbances, Other - Psychiatric Psychiatric: absent: As Per HPI, Abnormal Sleep Pattern, Anhedonia, Anxiety, Auditory Hallucinations, Behavioral Changes, Change in Appetite, Change in Libido, Confusion, Depression, Difficulty Concentrating, Hallucinations, Homicidal Ideation, Hopelessness, Irritability, Memory Loss, Mood Swings, Panic Attacks, Paranoia, Suicidal Ideation, Visual Hallucinations, Tactile Hallucinations, Other - Endocrine Endocrine: absent: As Per HPI, Change in Body Appearance, Change in Libido, Cold Intolorance, Deepening of Voice, Excessive Sweating, Fatigue, Flushing, Heat Intolorance, Increase in Ring/Shoe/Hat Size, Palpitations, Polydipsia, Polyphagia, Polyuria, Other - Hematologic/Lymphatic Hematologic: absent: As Per HPI, Easy Bleeding, Easy Bruising, Lymphadenopathy, Other Past Patient History - Past Medical History & Family History Past Medical History?: No - Past Social History Alcohol: Social Drugs: Denies - CARDIAC Hx Cardiac Disorders: No - PULMONARY Hx Respiratory Disorders: No - NEUROLOGICAL Hx Neurological Disorder: No - HEENT Hx HEENT Problems: No - RENAL Hx Chronic Kidney Disease: No - ENDOCRINE/METABOLIC Hx Endocrine Disorders: No - HEMATOLOGICAL/ONCOLOGICAL Hx Blood Disorders: No - INTEGUMENTARY Hx Basil Cell: No - MUSCULOSKELETAL/RHEUMATOLOGICAL Hx Musculoskeletal Disorders: No - GASTROINTESTINAL Hx Gastrointestinal Disorders: No - GENITOURINARY/GYNECOLOGICAL Hx Genitourinary Disorders: No - PSYCHIATRIC Hx Substance Use: No - SURGICAL HISTORY Hx Surgeries: Yes Other/Comment: hemorrhoid surgery - ANESTHESIA Hx Anesthesia: Yes Hx Anesthesia Reactions: No Meds Allergies/Adverse Reactions: Allergies Allergy/AdvReac Type Severity Reaction Status Date / Time No Known Allergies Allergy Verified 06/16/17 20:01 - Medications Medications: Current Medications Famotidine (Pepcid) 20 mg IVP Q12 [facility] Last Admin: 06/17/17 13:02 Dose: 20 mg Dextrose/Sodium Chloride (Dextrose 5%-0.9% Ns 500 Ml) 1,000 mls @ 100 mls/hr IV .Q10H [facility] Last Admin: 06/17/17 10:44 Dose: Not Given Piperacillin Sod/Tazobactam (Sod 3.375 gm/ Sodium Chloride) 100 mls @ 100 mls/ hr IVPB Q6 DAT PRN Reason: Protocol Last Admin: 06/17/17 10:22 Dose: 100 mls/hr Metronidazole (Flagyl 500mg/100ml Ns) 100 mls @ 100 mls/hr IVPB Q8 DAT PRN Reason: Protocol Last Admin: 06/17/17 06:44 Dose: 100 mls/hr Ketorolac Tromethamine (Toradol) 15 mg IVP Q6 PRN PRN Reason: Pain, moderate (4-7) Last Admin: 06/17/17 01:49 Dose: 15 mg Ketorolac Tromethamine (Toradol) 30 mg IVP Q6 PRN PRN Reason: Pain, severe (8-10) Physical Exam - Constitutional Appears: Non-toxic, No Acute Distress - Head Exam Head Exam: NORMOCEPHALIC - Eye Exam Eye Exam: absent: Scleral icterus - ENT Exam ENT Exam: Mucous Membranes Dry, Normal External Ear Exam, Normal Oropharynx - Neck Exam Neck exam: Negative for: Lymphadenopathy - Respiratory Exam Respiratory Exam: Decreased Breath Sounds - Cardiovascular Exam Cardiovascular Exam: REGULAR RHYTHM - GI/Abdominal Exam GI & Abdominal Exam: Diminished Bowel Sounds, Distended, Guarding, Tenderness. absent: Rebound, Rigid - Rectal Exam Rectal Exam: Deferred - Exam Exam: NORMAL INSPECTION - Extremities Exam Extremities exam: Positive for: pedal pulses present. Negative for: calf tenderness, pedal edema, tenderness - Back Exam Back exam: absent: CVA tenderness (L), CVA tenderness (R) - Neurological Exam Neurological exam: Alert, CN II-XII Intact, Oriented x3, Reflexes Normal - Psychiatric Exam Psychiatric exam: Depressed - Skin Skin Exam: Dry, Intact Results - Vital Signs Recent Vital Signs: Last Vital Signs Temp 97.7 F 06/17/17 08:13 Pulse 62 06/17/17 08:13 Resp 20 06/17/17 08:13 BP 124/64 06/17/17 08:13 Pulse Ox 96 06/17/17 08:13 - Labs Result Diagrams: 06/17/17 07:50 06/17/17 07:50 Labs: Laboratory Results - last 24 hr 06/16/17 06/16/17 06/16/17 20:26 20:26 23:18 WBC 13.9 H RBC 4.92 Hgb 15.4 Hct 45.7 MCV 92.9 MCH 31.4 H MCHC 33.7 RDW 12.5 Plt Count 259 MPV 8.0 Neut % (Auto) 80.7 H Lymph % (Auto) 11.7 L [place] % (Auto) 6.7 Eos % (Auto) 0.4 Baso % (Auto) 0.5 Neut # 11.2 H Lymph # 1.6 [place] # 0.9 H Eos # 0.1 Baso # 0.1 PT INR APTT Sodium 141 Potassium 4.4 Chloride 98 Carbon Dioxide 32 H Anion Gap 15 BUN 12 Creatinine 0.8 Est GFR ( Amer) > 60 Est GFR (Non-Af Amer) > 60 Random Glucose 108 Lactic Acid Calcium 9.3 Total Bilirubin 1.4 H AST 25 ALT 34 Alkaline Phosphatase 83 Total Protein 8.1 Albumin 4.2 Globulin 3.9 Albumin/Globulin Ratio 1.1 Lipase 18 L Blood Type A POSITIVE Blood Type Confirm Antibody Screen Negative BBK History Checked No verified bt 06/16/17 06/16/17 06/17/17 23:41 23:41 00:01 WBC RBC Hgb Hct MCV MCH MCHC RDW Plt Count MPV Neut % (Auto) Lymph % (Auto) [place] % (Auto) Eos % (Auto) Baso % (Auto) Neut # Lymph # [place] # Eos # Baso # PT 15.3 H INR 1.4 H APTT 35.4 Sodium Potassium Chloride Carbon Dioxide Anion Gap BUN Creatinine Est GFR ( Amer) Est GFR (Non-Af Amer) Random Glucose Lactic Acid 0.9 Calcium Total Bilirubin AST ALT Alkaline Phosphatase Total Protein Albumin Globulin Albumin/Globulin Ratio Lipase Blood Type Blood Type Confirm A POSITIVE Antibody Screen BBK History Checked 06/17/17 06/17/17 07:50 07:50 WBC 12.2 H RBC 4.58 Hgb 14.2 Hct 42.6 MCV 93.2 MCH 31.1 H MCHC 33.4 RDW 12.7 Plt Count 232 MPV 8.1 Neut % (Auto) 80.1 H Lymph % (Auto) 11.2 L [place] % (Auto) 7.8 Eos % (Auto) 0.7 Baso % (Auto) 0.2 Neut # 9.8 H Lymph # 1.4 [place] # 0.9 H Eos # 0.1 Baso # 0.0 PT INR APTT Sodium 139 Potassium 4.6 Chloride 101 Carbon Dioxide 30 Anion Gap 13 BUN 12 Creatinine 1.0 Est GFR ( Amer) > 60 Est GFR (Non-Af Amer) > 60 Random Glucose 101 Lactic Acid Calcium 8.7 Total Bilirubin AST ALT Alkaline Phosphatase Total Protein Albumin Globulin Albumin/Globulin Ratio Lipase Blood Type Blood Type Confirm Antibody Screen BBK History Checked Assessment & Plan (1) Appendicitis with abscess Status: Acute - Assessment and Plan (Free Text) Assessment: cont IV antibiotics, IR drainage await cultures surgical follow up
[2017-06-18] MEDS: metroNIDAZOLE 500mg/100ml NS 100 ML IVPB SCH ×3 (01:48→16:23)
[2017-06-18] MEDS: Piperacillin/Tazobact 3.375 GM in Sodium Chloride 0.9% 100 ML IVPB SCH ×4 (04:21→21:15)
[2017-06-18 07:38] LABS: BASO # 0.1 K/uL (0.0-0.2); BASO % 0.4 % (0.0-2.0); EOS # 0.1 K/uL (0.0-0.7); HEMATOCRIT 43.6 % (35.0-51.0); LYMPH # 1.7 K/uL (1.0-4.3); LYMPH % 13.3 % (20.0-40.0); MEAN CELL VOLUME 93.7 fl (80.0-94.0); MEAN CORPUSCULAR HEMOGLOBIN 31.1 pg (27.0-31.0); MEAN CORPUSCULAR HGB CONC 33.2 g/dL (33.0-37.0); MEAN PLATELET VOLUME 8.8 fl (7.2-11.7); MONO # 0.7 K/uL (0.0-0.8); MONO % 5.6 % (0.0-10.0); NEUT # 10.3 K/uL (1.8-7.0); NEUT % 79.7 % (50.0-75.0); NRBC % 0.1 % (0.0-0.0); RED CELL DISTRIBUTION WIDTH 12.6 % (11.5-14.5); WHITE BLOOD COUNT 12.9 K/uL (4.8-10.8)
[2017-06-18 08:04] LABS: BLOOD UREA NITROGEN 10 mg/dl (9-20); CALCIUM 8.9 mg/dL (8.4-10.2); CARBON DIOXIDE 28 mmol/L (22-30); CHLORIDE 103 mmol/L (98-107); GFR AFRICAN-AMERICAN > 60; GLUCOSE,RANDOM 94 mg/dL (75-110); POTASSIUM 4.2 MMOL/L (3.6-5.0); SODIUM 141 mmol/l (132-148)
[2017-06-18] MEDS: Famotidine 40 MG/5 ML PO SCH (08:08)
[2017-06-18] MEDS: Enoxaparin 40 mg Syringe SC SCH (08:09)
--- NOTE | 2017-06-18 08:50 | CP.PCM.PN ---
Subjective - Date & Time of Evaluation Date of Evaluation: 06/18/17 Time of Evaluation: 08:48 - Subjective Subjective: Gen sx: Dr Lopez Pt S&E. Reports he is feeling much better today. Denies nausea, vomiting, fevers or chills. Passing flatus. Tolerating PO intake. Would like something other than CLD. Objective - Vital Signs/Intake and Output Vital Signs (last 24 hours): Temp Pulse Resp BP Pulse Ox 99.0 F 74 18 125/75 97 06/18/17 07:55 06/18/17 07:55 06/18/17 07:55 06/18/17 07:55 06/18/17 07:55 - Medications Medications: Current Medications Enoxaparin Sodium (Lovenox) 40 mg SC DAILY DAT PRN Reason: Protocol Last Admin: 06/18/17 08:09 Dose: 40 mg Famotidine (Pepcid) 20 mg PO DAILY [facility] Last Admin: 06/18/17 08:08 Dose: 20 mg Dextrose/Sodium Chloride (Dextrose 5%-0.9% Ns 500 Ml) 1,000 mls @ 100 mls/hr IV .Q10H [facility] Last Admin: 06/18/17 05:27 Dose: 100 mls/hr Piperacillin Sod/Tazobactam (Sod 3.375 gm/ Sodium Chloride) 100 mls @ 100 mls/ hr IVPB Q6 DAT PRN Reason: Protocol Last Admin: 06/18/17 04:21 Dose: 100 mls/hr Metronidazole (Flagyl 500mg/100ml Ns) 100 mls @ 100 mls/hr IVPB Q8 DAT PRN Reason: Protocol Last Admin: 06/18/17 08:09 Dose: 100 mls/hr Ketorolac Tromethamine (Toradol) 15 mg IVP Q6 PRN PRN Reason: Pain, moderate (4-7) Last Admin: 06/17/17 17:12 Dose: 15 mg Ketorolac Tromethamine (Toradol) 30 mg IVP Q6 PRN PRN Reason: Pain, severe (8-10) - Labs Labs: 06/18/17 05:30 06/18/17 05:30 PT 15.3 Seconds (9.8-13.1) H 06/16/17 23:41 INR 1.4 (0.9-1.2) H 06/16/17 23:41 APTT 35.4 Seconds (25.6-37.1) 06/16/17 23:41 - Constitutional Appears: Non-toxic, No Acute Distress - ENT Exam ENT Exam: Mucous Membranes Moist - Respiratory Exam Respiratory Exam: absent: Accessory Muscle Use, Respiratory Distress - Cardiovascular Exam Cardiovascular Exam: REGULAR RHYTHM. absent: Tachycardia - GI/Abdominal Exam GI & Abdominal Exam: Soft, Tenderness (RLQ but improved). absent: Distended, Firm, Guarding - Neurological Exam Neurological Exam: Alert, Awake, Oriented x3 Assessment and Plan - Assessment and Plan (Free Text) Assessment: 52M with ruptured appendicitis -cont IV abx - will progress to FLD - consider repeat CT tuesday to eval abscess formation will d/w Dr John Rojas, PGY3
--- NOTE | 2017-06-18 08:52 | CP.PCM.PN ---
Subjective - Date & Time of Evaluation Date of Evaluation: 06/18/17 Time of Evaluation: 08:30 - Subjective Subjective: Patient seen and examined bedsidfe. Feeling better. Pain is controlled. Hemodynamically stable, afebrile.Tolerating PO intake No acute issues overnight WBC still elevated 12 K Objective - Vital Signs/Intake and Output Vital Signs (last 24 hours): Temp Pulse Resp BP Pulse Ox 99.0 F 74 18 125/75 97 06/18/17 07:55 06/18/17 07:55 06/18/17 07:55 06/18/17 07:55 06/18/17 07:55 - Medications Medications: Current Medications Enoxaparin Sodium (Lovenox) 40 mg SC DAILY DAT PRN Reason: Protocol Last Admin: 06/18/17 08:09 Dose: 40 mg Famotidine (Pepcid) 20 mg PO DAILY [facility] Last Admin: 06/18/17 08:08 Dose: 20 mg Dextrose/Sodium Chloride (Dextrose 5%-0.9% Ns 500 Ml) 1,000 mls @ 100 mls/hr IV .Q10H [facility] Last Admin: 06/18/17 05:27 Dose: 100 mls/hr Piperacillin Sod/Tazobactam (Sod 3.375 gm/ Sodium Chloride) 100 mls @ 100 mls/ hr IVPB Q6 DAT PRN Reason: Protocol Last Admin: 06/18/17 04:21 Dose: 100 mls/hr Metronidazole (Flagyl 500mg/100ml Ns) 100 mls @ 100 mls/hr IVPB Q8 DAT PRN Reason: Protocol Last Admin: 06/18/17 08:09 Dose: 100 mls/hr Ketorolac Tromethamine (Toradol) 15 mg IVP Q6 PRN PRN Reason: Pain, moderate (4-7) Last Admin: 06/17/17 17:12 Dose: 15 mg Ketorolac Tromethamine (Toradol) 30 mg IVP Q6 PRN PRN Reason: Pain, severe (8-10) - Labs Labs: 06/18/17 05:30 06/18/17 05:30 PT 15.3 Seconds (9.8-13.1) H 06/16/17 23:41 INR 1.4 (0.9-1.2) H 06/16/17 23:41 APTT 35.4 Seconds (25.6-37.1) 06/16/17 23:41 - Constitutional Appears: Well, Non-toxic, No Acute Distress - Head Exam Head Exam: ATRAUMATIC, NORMAL INSPECTION, NORMOCEPHALIC - Eye Exam Eye Exam: EOMI, Normal appearance, PERRL Pupil Exam: NORMAL ACCOMODATION - ENT Exam ENT Exam: Mucous Membranes Moist, Normal Exam - Neck Exam Neck Exam: Full ROM, Normal Inspection - Respiratory Exam Respiratory Exam: Clear to Ausculation Bilateral, NORMAL BREATHING PATTERN. absent: Rales, Rhonchi, Wheezes - Cardiovascular Exam Cardiovascular Exam: REGULAR RHYTHM, RRR, +S1, +S2. absent: JVD - GI/Abdominal Exam GI & Abdominal Exam: Soft, Normal Bowel Sounds. absent: Distended, Guarding, Tenderness, Rebound - Rectal Exam Rectal Exam: Deferred - Extremities Exam Extremities Exam: Full ROM, Normal Capillary Refill, Normal Inspection. absent : Calf Tenderness, Pedal Edema - Back Exam Back Exam: NORMAL INSPECTION - Neurological Exam Neurological Exam: Alert, Awake, CN II-XII Intact, Oriented x3 - Psychiatric Exam Psychiatric exam: Normal Affect, Normal Mood - Skin Skin Exam: Dry, Intact, Normal Color, Warm Assessment and Plan - Assessment and Plan (Free Text) Assessment: 52 y/o gent , no significant PMH, presented in the ED with six days of RLQ abdominal pain radiating across the lower abdomen and the periumbilical region. The pain is constant with no relief from [place] or Magnesium Citrate. no fever , chills, nausea, vomits, dysuria nor urinary frequencies. Ct abdomen showed perforated acute appendicitis with abscess 4.5 x 3.1 cm . Patient admitted to med/surg , surgery, ID and IR consulted and started on IV antibiotics. CT of the Abdomen: Perforated appendicitis with 4.5 x 3.1 centimeter lobulated abscess. The entirety of the abscess is located in the right lower quadrant, posterior to a loop of thickened terminal ileum. Terminal ileal and sigmoid thickening is likely reactive. Too small to characterize 6 millimeter hepatic hypodensity. 1. Acute Perforated Appenicitis with abscess formation clinically improving, afebrile, pain resolved WBC still elevated 12 K Continue IV Zosyn and Flagyl Pain mgt Surgery consulted- recommended Drainage of abscess by IR. Dr Lunsford consulted - abscess is posterior to the bowels and not amenable by CT drainage will continue IV antibiotics plan for surgery at a later date advance diet to regular 2.DVT proph Lovenox
[2017-06-19] MEDS: metroNIDAZOLE 500mg/100ml NS 100 ML IVPB SCH ×3 (00:07→16:53)
[2017-06-19] MEDS: Piperacillin/Tazobact 3.375 GM in Sodium Chloride 0.9% 100 ML IVPB SCH ×4 (03:01→21:16)
[2017-06-19] MEDS: Famotidine 40 MG/5 ML PO SCH (08:37)
[2017-06-19] MEDS: Enoxaparin 40 mg Syringe SC SCH (08:37)
[2017-06-19 08:43] LABS: HEMATOCRIT 39.2 % (35.0-51.0); MEAN CELL VOLUME 93.1 fl (80.0-94.0); MEAN CORPUSCULAR HEMOGLOBIN 31.5 pg (27.0-31.0); MEAN CORPUSCULAR HGB CONC 33.9 g/dL (33.0-37.0); RED CELL DISTRIBUTION WIDTH 12.4 % (11.5-14.5); WHITE BLOOD COUNT 10.2 K/uL (4.8-10.8)
--- NOTE | 2017-06-19 11:15 | CP.PCM.PN ---
Subjective - Date & Time of Evaluation Date of Evaluation: 06/19/17 Time of Evaluation: 11:14 - Subjective Subjective: Gen Sx: Dr Lopez Pt S&e. NAEO. Tolerating diet. Pain significantly improved. Denies N/V, F/ C. Having regular bowel movements Objective - Vital Signs/Intake and Output Vital Signs (last 24 hours): Temp Pulse Resp BP Pulse Ox 98.7 F 67 17 131/78 98 06/19/17 07:57 06/19/17 07:57 06/19/17 07:57 06/19/17 07:57 06/19/17 07:57 - Medications Medications: Current Medications Enoxaparin Sodium (Lovenox) 40 mg SC DAILY DAT PRN Reason: Protocol Last Admin: 06/19/17 08:37 Dose: 40 mg Famotidine (Pepcid) 20 mg PO DAILY [facility] Last Admin: 06/19/17 08:37 Dose: 20 mg Dextrose/Sodium Chloride (Dextrose 5%-0.9% Ns 500 Ml) 1,000 mls @ 100 mls/hr IV .Q10H [facility] Last Admin: 06/19/17 02:27 Dose: 100 mls/hr Piperacillin Sod/Tazobactam (Sod 3.375 gm/ Sodium Chloride) 100 mls @ 100 mls/ hr IVPB Q6 DAT PRN Reason: Protocol Last Admin: 06/19/17 03:01 Dose: 100 mls/hr Metronidazole (Flagyl 500mg/100ml Ns) 100 mls @ 100 mls/hr IVPB Q8 DAT PRN Reason: Protocol Last Admin: 06/19/17 08:37 Dose: 100 mls/hr Ketorolac Tromethamine (Toradol) 15 mg IVP Q6 PRN PRN Reason: Pain, moderate (4-7) Last Admin: 06/18/17 19:40 Dose: 15 mg Ketorolac Tromethamine (Toradol) 30 mg IVP Q6 PRN PRN Reason: Pain, severe (8-10) - Labs Labs: 06/19/17 05:45 06/18/17 05:30 PT 15.3 Seconds (9.8-13.1) H 06/16/17 23:41 INR 1.4 (0.9-1.2) H 06/16/17 23:41 APTT 35.4 Seconds (25.6-37.1) 06/16/17 23:41 - Constitutional Appears: Non-toxic - ENT Exam ENT Exam: Mucous Membranes Moist - Respiratory Exam Respiratory Exam: absent: Accessory Muscle Use, Respiratory Distress - Cardiovascular Exam Cardiovascular Exam: REGULAR RHYTHM - GI/Abdominal Exam GI & Abdominal Exam: Soft. absent: Distended, Tenderness Assessment and Plan - Assessment and Plan (Free Text) Assessment: 52M with perforated appendicitis Plan: cont abx will consider repeating CT w/ PO contrast tomorrow will d/w Dr John Rojas, PGY3
[2017-06-19] MEDS ORDERED: Iohexol 240 (50 ml) PO ONE (12:12)
--- NOTE | 2017-06-19 12:12 | CP.PCM.PN ---
Subjective - Date & Time of Evaluation Date of Evaluation: 06/19/17 Time of Evaluation: 11:30 - Subjective Subjective: Patient seen bedside. Feeling well. pain has resolved . Tolerating PO intake Hemodynamically stable, afebrile. no acute issues overnight Objective - Vital Signs/Intake and Output Vital Signs (last 24 hours): Temp Pulse Resp BP Pulse Ox 98.7 F 67 17 131/78 98 06/19/17 07:57 06/19/17 07:57 06/19/17 07:57 06/19/17 07:57 06/19/17 07:57 - Medications Medications: Current Medications Enoxaparin Sodium (Lovenox) 40 mg SC DAILY DAT PRN Reason: Protocol Last Admin: 06/19/17 08:37 Dose: 40 mg Famotidine (Pepcid) 20 mg PO DAILY [facility] Last Admin: 06/19/17 08:37 Dose: 20 mg Dextrose/Sodium Chloride (Dextrose 5%-0.9% Ns 500 Ml) 1,000 mls @ 100 mls/hr IV .Q10H [facility] Last Admin: 06/19/17 02:27 Dose: 100 mls/hr Piperacillin Sod/Tazobactam (Sod 3.375 gm/ Sodium Chloride) 100 mls @ 100 mls/ hr IVPB Q6 DAT PRN Reason: Protocol Last Admin: 06/19/17 10:15 Dose: 100 mls/hr Metronidazole (Flagyl 500mg/100ml Ns) 100 mls @ 100 mls/hr IVPB Q8 DAT PRN Reason: Protocol Last Admin: 06/19/17 08:37 Dose: 100 mls/hr Ketorolac Tromethamine (Toradol) 15 mg IVP Q6 PRN PRN Reason: Pain, moderate (4-7) Last Admin: 06/18/17 19:40 Dose: 15 mg Ketorolac Tromethamine (Toradol) 30 mg IVP Q6 PRN PRN Reason: Pain, severe (8-10) - Labs Labs: 06/19/17 05:45 06/18/17 05:30 PT 15.3 Seconds (9.8-13.1) H 06/16/17 23:41 INR 1.4 (0.9-1.2) H 06/16/17 23:41 APTT 35.4 Seconds (25.6-37.1) 06/16/17 23:41 - Constitutional Appears: Non-toxic, No Acute Distress - Head Exam Head Exam: ATRAUMATIC, NORMAL INSPECTION, NORMOCEPHALIC - Eye Exam Eye Exam: EOMI, Normal appearance, PERRL Pupil Exam: NORMAL ACCOMODATION - ENT Exam ENT Exam: Mucous Membranes Moist, Normal Exam - Neck Exam Neck Exam: Full ROM, Normal Inspection - Respiratory Exam Respiratory Exam: Clear to Ausculation Bilateral, NORMAL BREATHING PATTERN. absent: Rales, Wheezes, Respiratory Distress - Cardiovascular Exam Cardiovascular Exam: REGULAR RHYTHM, RRR, +S1, +S2. absent: JVD - GI/Abdominal Exam GI & Abdominal Exam: Soft, Normal Bowel Sounds. absent: Distended, Guarding, Tenderness, Rebound - Rectal Exam Rectal Exam: Deferred - Extremities Exam Extremities Exam: Full ROM, Normal Capillary Refill, Normal Inspection. absent : Pedal Edema - Back Exam Back Exam: NORMAL INSPECTION - Neurological Exam Neurological Exam: Alert, Awake, CN II-XII Intact, Oriented x3 - Skin Skin Exam: Dry, Intact, Normal Color, Warm Assessment and Plan - Assessment and Plan (Free Text) Assessment: 52 y/o gent , no significant PMH, presented in the ED with six days of RLQ abdominal pain radiating across the lower abdomen and the periumbilical region. The pain is constant with no relief from [place] or Magnesium Citrate. no fever , chills, nausea, vomits, dysuria nor urinary frequencies. Ct abdomen showed perforated acute appendicitis with abscess 4.5 x 3.1 cm . Patient admitted to med/surg , surgery, ID and IR consulted and started on IV antibiotics. CT of the Abdomen: Perforated appendicitis with 4.5 x 3.1 centimeter lobulated abscess. The entirety of the abscess is located in the right lower quadrant, posterior to a loop of thickened terminal ileum. Terminal ileal and sigmoid thickening is likely reactive. Too small to characterize 6 millimeter hepatic hypodensity. 1. Acute Perforated Appenicitis with abscess formation clinically improving, afebrile, pain resolved WBC trended down 10 K Continue IV Zosyn and Flagyl Pain mgt Surgery consulted- recommended Drainage of abscess by IR. Dr Lunsford consulted - abscess is posterior to the bowels and not amenable by CT drainage will continue IV antibiotics plan for repeat CT abdomen in AM advanced diet to regular and tolerating well 2.DVT proph Lovenox
--- NOTE | 2017-06-19 14:25 | CP.PCM.PN ---
Subjective - Date & Time of Evaluation Date of Evaluation: 06/19/17 Time of Evaluation: 07:00 - Subjective Subjective: no fever less pain alert and responsive for repeat CT Objective - Vital Signs/Intake and Output Vital Signs (last 24 hours): Temp Pulse Resp BP Pulse Ox 98.7 F 67 17 131/78 98 06/19/17 07:57 06/19/17 07:57 06/19/17 07:57 06/19/17 07:57 06/19/17 07:57 - Medications Medications: Current Medications Enoxaparin Sodium (Lovenox) 40 mg SC DAILY DAT PRN Reason: Protocol Last Admin: 06/19/17 08:37 Dose: 40 mg Famotidine (Pepcid) 20 mg PO DAILY [facility] Last Admin: 06/19/17 08:37 Dose: 20 mg Dextrose/Sodium Chloride (Dextrose 5%-0.9% Ns 500 Ml) 1,000 mls @ 100 mls/hr IV .Q10H [facility] Last Admin: 06/19/17 02:27 Dose: 100 mls/hr Piperacillin Sod/Tazobactam (Sod 3.375 gm/ Sodium Chloride) 100 mls @ 100 mls/ hr IVPB Q6 DAT PRN Reason: Protocol Last Admin: 06/19/17 10:15 Dose: 100 mls/hr Metronidazole (Flagyl 500mg/100ml Ns) 100 mls @ 100 mls/hr IVPB Q8 DAT PRN Reason: Protocol Last Admin: 06/19/17 08:37 Dose: 100 mls/hr Iohexol (Omnipaque 240 (50 Ml)) 50 ml PO ONCE ONE Stop: 06/20/17 08:01 Ketorolac Tromethamine (Toradol) 15 mg IVP Q6 PRN PRN Reason: Pain, moderate (4-7) Last Admin: 06/18/17 19:40 Dose: 15 mg Ketorolac Tromethamine (Toradol) 30 mg IVP Q6 PRN PRN Reason: Pain, severe (8-10) - Labs Labs: 06/19/17 05:45 06/18/17 05:30 PT 15.3 Seconds (9.8-13.1) H 06/16/17 23:41 INR 1.4 (0.9-1.2) H 06/16/17 23:41 APTT 35.4 Seconds (25.6-37.1) 06/16/17 23:41 - Constitutional Appears: Non-toxic, Chronically Ill - Head Exam Head Exam: NORMOCEPHALIC - Eye Exam Eye Exam: PERRL - ENT Exam ENT Exam: Mucous Membranes Dry - Neck Exam Neck Exam: absent: Lymphadenopathy - Respiratory Exam Respiratory Exam: Decreased Breath Sounds - Cardiovascular Exam Cardiovascular Exam: REGULAR RHYTHM - GI/Abdominal Exam GI & Abdominal Exam: Distended, Soft - Rectal Exam Rectal Exam: Deferred - Exam Exam: NORMAL INSPECTION - Extremities Exam Extremities Exam: absent: Pedal Edema - Back Exam Back Exam: absent: CVA tenderness (L), CVA tenderness (R), paraspinal tenderness - Neurological Exam Neurological Exam: Alert, Awake, Oriented x3 - Psychiatric Exam Psychiatric exam: Normal Mood - Skin Skin Exam: Dry Assessment and Plan (1) Appendicitis with abscess Status: Acute
[2017-06-20] MEDS: metroNIDAZOLE 500mg/100ml NS 100 ML IVPB SCH ×3 (00:21→16:27)
[2017-06-20] MEDS: Piperacillin/Tazobact 3.375 GM in Sodium Chloride 0.9% 100 ML IVPB SCH ×4 (04:23→21:22)
[2017-06-20] MEDS ORDERED: Iohexol 240 (50 ml) PO ONE (06:00)
[2017-06-20 06:35] LABS: HEMATOCRIT 39.5 % (35.0-51.0); MEAN CELL VOLUME 93.2 fl (80.0-94.0); MEAN CORPUSCULAR HGB CONC 33.3 g/dL (33.0-37.0); RED CELL DISTRIBUTION WIDTH 12.3 % (11.5-14.5); WHITE BLOOD COUNT 12.8 K/uL (4.8-10.8)
--- NOTE | 2017-06-20 08:51 | CP.PCM.PN ---
<CrystalAbimael ann Ruth - Last Filed: 06/20/17 08:54> Subjective - Date & Time of Evaluation Date of Evaluation: 06/20/17 Time of Evaluation: 08:54 - Subjective Subjective: General Surgery: Dr Lopez/Allyson Pt S&E. No current complaints, though pt did state he had some increased discomfort last night around the umbilicus. Feeling more distended this morning. Pt denies N/V, fevers or chills. Having bowel movements regularly. plan today for CT Abd/Pel w/ PO contrast Objective - Vital Signs/Intake and Output Vital Signs (last 24 hours): Temp Pulse Resp BP Pulse Ox 98.8 F 64 20 143/86 99 06/20/17 08:33 06/20/17 08:33 06/20/17 08:33 06/20/17 08:33 06/20/17 08:33 - Medications Medications: Current Medications Enoxaparin Sodium (Lovenox) 40 mg SC DAILY DAT PRN Reason: Protocol Last Admin: 06/19/17 08:37 Dose: 40 mg Famotidine (Pepcid) 20 mg PO DAILY [facility] Last Admin: 06/19/17 08:37 Dose: 20 mg Dextrose/Sodium Chloride (Dextrose 5%-0.9% Ns 500 Ml) 1,000 mls @ 100 mls/hr IV .Q10H [facility] Last Admin: 06/19/17 22:19 Dose: Not Given Piperacillin Sod/Tazobactam (Sod 3.375 gm/ Sodium Chloride) 100 mls @ 100 mls/ hr IVPB Q6 DAT PRN Reason: Protocol Last Admin: 06/20/17 04:23 Dose: 100 mls/hr Metronidazole (Flagyl 500mg/100ml Ns) 100 mls @ 100 mls/hr IVPB Q8 DAT PRN Reason: Protocol Last Admin: 06/20/17 00:21 Dose: 100 mls/hr Ketorolac Tromethamine (Toradol) 15 mg IVP Q6 PRN PRN Reason: Pain, moderate (4-7) Last Admin: 06/20/17 02:19 Dose: 15 mg Ketorolac Tromethamine (Toradol) 30 mg IVP Q6 PRN PRN Reason: Pain, severe (8-10) - Labs Labs: 06/20/17 05:35 06/18/17 05:30 PT 15.3 Seconds (9.8-13.1) H 06/16/17 23:41 INR 1.4 (0.9-1.2) H 06/16/17 23:41 APTT 35.4 Seconds (25.6-37.1) 06/16/17 23:41 - Constitutional Appears: Non-toxic, No Acute Distress - ENT Exam ENT Exam: Mucous Membranes Moist - Respiratory Exam Respiratory Exam: absent: Accessory Muscle Use, Respiratory Distress - Cardiovascular Exam Cardiovascular Exam: REGULAR RHYTHM. absent: Tachycardia - GI/Abdominal Exam GI & Abdominal Exam: Distended, Soft, Tenderness (minimal in RLQ and around umbilicus). absent: Firm, Guarding, Rigid - Neurological Exam Neurological Exam: Alert, Awake, Oriented x3 - Psychiatric Exam Psychiatric exam: Normal Affect, Normal Mood - Skin Skin Exam: Normal Color, Warm Assessment and Plan - Assessment and Plan (Free Text) Assessment: 52M with perforated appendicitis; being treated conservatively Plan: cont IV abx CT w/ PO today further recs pending results will need interval appendectomy in 4-6 weeks will d/w Dr Allyson Rojas, PGY3 <Eran Valadez - Last Filed: 06/20/17 09:59> Subjective - Date & Time of Evaluation Time of Evaluation: 09:20 - Subjective Subjective: Patient was seen and examined at the bedside. Agree with resident's note above. Objective - Vital Signs/Intake and Output Vital Signs (last 24 hours): Temp Pulse Resp BP Pulse Ox 98.8 F 64 20 143/86 99 06/20/17 08:33 06/20/17 08:33 06/20/17 08:33 06/20/17 08:33 06/20/17 08:33 - Medications Medications: Current Medications Enoxaparin Sodium (Lovenox) 40 mg SC DAILY DAT PRN Reason: Protocol Last Admin: 06/20/17 09:11 Dose: 40 mg Famotidine (Pepcid) 20 mg PO DAILY [facility] Last Admin: 06/19/17 08:37 Dose: 20 mg Dextrose/Sodium Chloride (Dextrose 5%-0.9% Ns 500 Ml) 1,000 mls @ 100 mls/hr IV .Q10H [facility] Last Admin: 06/19/17 22:19 Dose: Not Given Piperacillin Sod/Tazobactam (Sod 3.375 gm/ Sodium Chloride) 100 mls @ 100 mls/ hr IVPB Q6 DAT PRN Reason: Protocol Last Admin: 06/20/17 04:23 Dose: 100 mls/hr Metronidazole (Flagyl 500mg/100ml Ns) 100 mls @ 100 mls/hr IVPB Q8 DAT PRN Reason: Protocol Last Admin: 06/20/17 09:10 Dose: 100 mls/hr Ketorolac Tromethamine (Toradol) 15 mg IVP Q6 PRN PRN Reason: Pain, moderate (4-7) Last Admin: 06/20/17 02:19 Dose: 15 mg Ketorolac Tromethamine (Toradol) 30 mg IVP Q6 PRN PRN Reason: Pain, severe (8-10) - Labs Labs: 06/20/17 05:35 06/18/17 05:30 PT 15.3 Seconds (9.8-13.1) H 06/16/17 23:41 INR 1.4 (0.9-1.2) H 06/16/17 23:41 APTT 35.4 Seconds (25.6-37.1) 06/16/17 23:41 Assessment and Plan - Assessment and Plan (Free Text) Plan: - CT abd/pelvis today - Continue Zosyn - Continue diet - pain control - Repeat labs in am - DVT ppx - Will follow
[2017-06-20] MEDS: Enoxaparin 40 mg Syringe SC SCH (09:11)
--- NOTE | 2017-06-20 10:04 | CP.PCM.PN ---
Subjective - Date & Time of Evaluation Date of Evaluation: 06/20/17 Time of Evaluation: 11:00 - Subjective Subjective: Patient seen and examined bedside. Feeling well. A little more distended and gaseous yesterday. Hemodynamically stable, afebrile WBc trending up to 12 K Objective - Vital Signs/Intake and Output Vital Signs (last 24 hours): Temp Pulse Resp BP Pulse Ox 98.8 F 64 20 143/86 99 06/20/17 08:33 06/20/17 08:33 06/20/17 08:33 06/20/17 08:33 06/20/17 08:33 - Medications Medications: Current Medications Enoxaparin Sodium (Lovenox) 40 mg SC DAILY DAT PRN Reason: Protocol Last Admin: 06/20/17 09:11 Dose: 40 mg Famotidine (Pepcid) 20 mg PO DAILY [facility] Last Admin: 06/19/17 08:37 Dose: 20 mg Dextrose/Sodium Chloride (Dextrose 5%-0.9% Ns 500 Ml) 1,000 mls @ 100 mls/hr IV .Q10H [facility] Last Admin: 06/19/17 22:19 Dose: Not Given Piperacillin Sod/Tazobactam (Sod 3.375 gm/ Sodium Chloride) 100 mls @ 100 mls/ hr IVPB Q6 DAT PRN Reason: Protocol Last Admin: 06/20/17 04:23 Dose: 100 mls/hr Metronidazole (Flagyl 500mg/100ml Ns) 100 mls @ 100 mls/hr IVPB Q8 DAT PRN Reason: Protocol Last Admin: 06/20/17 09:10 Dose: 100 mls/hr Ketorolac Tromethamine (Toradol) 15 mg IVP Q6 PRN PRN Reason: Pain, moderate (4-7) Last Admin: 06/20/17 02:19 Dose: 15 mg Ketorolac Tromethamine (Toradol) 30 mg IVP Q6 PRN PRN Reason: Pain, severe (8-10) - Labs Labs: 06/20/17 05:35 06/18/17 05:30 PT 15.3 Seconds (9.8-13.1) H 06/16/17 23:41 INR 1.4 (0.9-1.2) H 06/16/17 23:41 APTT 35.4 Seconds (25.6-37.1) 06/16/17 23:41 - Constitutional Appears: Non-toxic, No Acute Distress - Head Exam Head Exam: ATRAUMATIC, NORMAL INSPECTION, NORMOCEPHALIC - Eye Exam Eye Exam: EOMI, Normal appearance, PERRL Pupil Exam: NORMAL ACCOMODATION - ENT Exam ENT Exam: Mucous Membranes Moist, Normal Exam - Neck Exam Neck Exam: Full ROM, Normal Inspection - Respiratory Exam Respiratory Exam: Clear to Ausculation Bilateral, NORMAL BREATHING PATTERN. absent: Rhonchi, Wheezes - Cardiovascular Exam Cardiovascular Exam: REGULAR RHYTHM, RRR, +S1, +S2. absent: JVD - GI/Abdominal Exam GI & Abdominal Exam: Soft, Normal Bowel Sounds. absent: Distended, Guarding, Rebound - Rectal Exam Rectal Exam: Deferred - Extremities Exam Extremities Exam: Full ROM, Normal Capillary Refill, Normal Inspection. absent : Calf Tenderness, Pedal Edema - Back Exam Back Exam: NORMAL INSPECTION - Neurological Exam Neurological Exam: Alert, Awake, CN II-XII Intact, Oriented x3 - Psychiatric Exam Psychiatric exam: Normal Affect, Normal Mood - Skin Skin Exam: Dry, Intact, Normal Color, Warm Assessment and Plan - Assessment and Plan (Free Text) Assessment: 52 y/o gent , no significant PMH, presented in the ED with six days of RLQ abdominal pain radiating across the lower abdomen and the periumbilical region. The pain is constant with no relief from [place] or Magnesium Citrate. no fever , chills, nausea, vomits, dysuria nor urinary frequencies. Ct abdomen showed perforated acute appendicitis with abscess 4.5 x 3.1 cm . Patient admitted to med/surg , surgery, ID and IR consulted and started on IV antibiotics. CT of the Abdomen: Perforated appendicitis with 4.5 x 3.1 centimeter lobulated abscess. The entirety of the abscess is located in the right lower quadrant, posterior to a loop of thickened terminal ileum. Terminal ileal and sigmoid thickening is likely reactive. Too small to characterize 6 millimeter hepatic hypodensity. 1. Acute Perforated Appenicitis with abscess formation clinically improving, afebrile, pain resolved WBC trended up today 12 K Continue IV Zosyn and Flagyl Pain mgt Surgery consulted- recommended Drainage of abscess by IR. Dr Lunsford consulted - abscess is posterior to the bowels and not amenable by CT drainage will continue IV antibiotics plan for repeat CT abdomen today advanced diet to regular and tolerating well 2.DVT proph Lovenox
[2017-06-20] MEDS ORDERED: Sodium Chloride 0.9% 50 ML IV ONE (12:20)
[2017-06-20] MEDS ORDERED: Iohexol 300 100 ML IJ ONE (12:20)
--- NOTE | 2017-06-20 12:40 | CP.PCM.PN ---
Subjective - Date & Time of Evaluation Date of Evaluation: 06/20/17 Time of Evaluation: 10:00 - Subjective Subjective: events noted await CT may need drainage Objective - Vital Signs/Intake and Output Vital Signs (last 24 hours): Temp Pulse Resp BP Pulse Ox 98.8 F 64 20 143/86 99 06/20/17 08:33 06/20/17 08:33 06/20/17 08:33 06/20/17 08:33 06/20/17 08:33 - Medications Medications: Current Medications Enoxaparin Sodium (Lovenox) 40 mg SC DAILY DAT PRN Reason: Protocol Last Admin: 06/20/17 09:11 Dose: 40 mg Famotidine (Pepcid) 20 mg PO DAILY [facility] Last Admin: 06/19/17 08:37 Dose: 20 mg Dextrose/Sodium Chloride (Dextrose 5%-0.9% Ns 500 Ml) 1,000 mls @ 100 mls/hr IV .Q10H [facility] Last Admin: 06/19/17 22:19 Dose: Not Given Piperacillin Sod/Tazobactam (Sod 3.375 gm/ Sodium Chloride) 100 mls @ 100 mls/ hr IVPB Q6 DAT PRN Reason: Protocol Last Admin: 06/20/17 10:17 Dose: 100 mls/hr Metronidazole (Flagyl 500mg/100ml Ns) 100 mls @ 100 mls/hr IVPB Q8 DAT PRN Reason: Protocol Last Admin: 06/20/17 09:10 Dose: 100 mls/hr Ketorolac Tromethamine (Toradol) 15 mg IVP Q6 PRN PRN Reason: Pain, moderate (4-7) Last Admin: 06/20/17 02:19 Dose: 15 mg Ketorolac Tromethamine (Toradol) 30 mg IVP Q6 PRN PRN Reason: Pain, severe (8-10) - Labs Labs: 06/20/17 05:35 06/18/17 05:30 PT 15.3 Seconds (9.8-13.1) H 06/16/17 23:41 INR 1.4 (0.9-1.2) H 06/16/17 23:41 APTT 35.4 Seconds (25.6-37.1) 06/16/17 23:41 - Constitutional Appears: Non-toxic, Chronically Ill - Head Exam Head Exam: NORMOCEPHALIC - Eye Exam Eye Exam: PERRL - ENT Exam ENT Exam: Mucous Membranes Dry - Neck Exam Neck Exam: absent: Lymphadenopathy - Respiratory Exam Respiratory Exam: Decreased Breath Sounds - Cardiovascular Exam Cardiovascular Exam: REGULAR RHYTHM - GI/Abdominal Exam GI & Abdominal Exam: Distended Assessment and Plan (1) Appendicitis with abscess Status: Acute
--- NOTE | 2017-06-20 13:26 | CT ---
PROCEDURE: CT Abdomen and Pelvis with contrast HISTORY: abd pain/distention; perforated appendicitis COMPARISON: None. TECHNIQUE: Contrast dose: 95 mL Omnipaque 300 Radiation dose: Total exam DLP = 648.19 mGy-cm. This CT exam was performed using one or more of the following dose reduction techniques: Automated exposure control, adjustment of the mA and/or kV according to patient size, and/or use of iterative reconstruction technique. FINDINGS: LOWER THORAX: Unremarkable. LIVER: Unremarkable. No gross lesion or ductal dilatation. GALLBLADDER AND BILE DUCTS: Unremarkable. PANCREAS: Unremarkable. No gross lesion or ductal dilatation. SPLEEN: Unremarkable. ADRENALS: Unremarkable. No mass. KIDNEYS AND URETERS: Unremarkable. No hydronephrosis. No solid mass. VASCULATURE: Unremarkable. No aortic aneurysm. BOWEL: The previously identified right periappendiceal abscess is again identified. It is enlarged mildly. It measures approximately 3.0 x 3.4 x 3.9 cm. There is extensive surrounding phlegmonous change. There is mural thickening of the cecum and terminal/distal ileum. The terminal/distal ileum is draped over this collection and surrounding phlegmon as on prior examination. It is thick walled likely secondary to inflammatory change from the adjacent abscess/ phlegmon. There are no other abnormal bowel loops identified. There is no bowel obstruction. APPENDIX: As above PERITONEUM: Trace ascites LYMPH NODES: Unremarkable. No enlarged lymph nodes. BLADDER: Mild bladder wall thickening possibly due to lack of adequate distention. Please correlate for possible cystitis. REPRODUCTIVE: Unremarkable prostate BONES: No acute fracture. OTHER FINDINGS: None. IMPRESSION: Periappendiceal abscess slightly increased in size from prior CT of 06/16/2017. Extensive surrounding phlegmon. Mural thickening of the cecum and distal/ terminal ileum likely due to its position adjacent to the abscess/ phlegmon. Mild thickening of bladder wall which may be artifactual due to underdistention but correlation for cystitis should be made. Trace ascites. .
[2017-06-20] MEDS: Famotidine 40 MG/5 ML PO SCH (15:48)
[2017-06-21] MEDS: metroNIDAZOLE 500mg/100ml NS 100 ML IVPB SCH ×2 (00:13→08:52)
[2017-06-21] MEDS: Piperacillin/Tazobact 3.375 GM in Sodium Chloride 0.9% 100 ML IVPB SCH ×2 (03:49→08:59)
[2017-06-21 06:26] LABS: BASO % 0.3 % (0.0-2.0); EOS # 0.2 K/uL (0.0-0.7); EOS % 1.5 % (0.0-4.0); LYMPH % 15.2 % (20.0-40.0); MEAN CORPUSCULAR HEMOGLOBIN 30.7 pg (27.0-31.0); MEAN PLATELET VOLUME 8.2 fl (7.2-11.7); MONO # 0.6 K/uL (0.0-0.8); MONO % 4.8 % (0.0-10.0); NEUT # 10.2 K/uL (1.8-7.0); NEUT % 78.2 % (50.0-75.0); RED CELL DISTRIBUTION WIDTH 12.5 % (11.5-14.5)
[2017-06-21 06:39] LABS: ALKALINE PHOSPHATASE 68 U/L (38-126); ALT/SGPT 46 U/L (21-72); AST/SGOT 46 U/L (17-59); BILIRUBIN,TOTAL 0.6 mg/dl (0.2-1.3); BLOOD UREA NITROGEN 9 mg/dl (9-20); CALCIUM 9.2 mg/dL (8.4-10.2); CARBON DIOXIDE 30 mmol/L (22-30); CHLORIDE 103 mmol/L (98-107); GFR AFRICAN-AMERICAN > 60; GLUCOSE,RANDOM 97 mg/dL (75-110); POTASSIUM 4.1 MMOL/L (3.6-5.0); SODIUM 143 mmol/l (132-148); TOTAL PROTEIN 7.6 G/DL (6.3-8.2)
--- NOTE | 2017-06-21 08:30 | CP.PCM.PN ---
<Alysa Caldwell - Last Filed: 06/21/17 08:28> Subjective - Date & Time of Evaluation Date of Evaluation: 06/21/17 Time of Evaluation: 07:00 - Subjective Subjective: General Surgery Dr. Valadez Pt S&E @bedside. NAEO. no complaints this AM. pt reports improved abd pain and distention. denies F/C, N/V, D/C. tolerating diet. Objective - Vital Signs/Intake and Output Vital Signs (last 24 hours): Temp Pulse Resp BP Pulse Ox 98.3 F 65 20 142/76 95 06/21/17 08:02 06/21/17 08:02 06/21/17 08:02 06/21/17 08:02 06/21/17 08:02 - Medications Medications: Current Medications Enoxaparin Sodium (Lovenox) 40 mg SC DAILY DAT PRN Reason: Protocol Last Admin: 06/20/17 09:11 Dose: 40 mg Famotidine (Pepcid) 20 mg PO DAILY [facility] Last Admin: 06/20/17 15:48 Dose: 20 mg Dextrose/Sodium Chloride (Dextrose 5%-0.9% Ns 500 Ml) 1,000 mls @ 100 mls/hr IV .Q10H [facility] Last Admin: 06/19/17 22:19 Dose: Not Given Piperacillin Sod/Tazobactam (Sod 3.375 gm/ Sodium Chloride) 100 mls @ 100 mls/ hr IVPB Q6 DAT PRN Reason: Protocol Last Admin: 06/21/17 03:49 Dose: 100 mls/hr Metronidazole (Flagyl 500mg/100ml Ns) 100 mls @ 100 mls/hr IVPB Q8 DAT PRN Reason: Protocol Last Admin: 06/21/17 00:13 Dose: 100 mls/hr Ketorolac Tromethamine (Toradol) 15 mg IVP Q6 PRN PRN Reason: Pain, moderate (4-7) Last Admin: 06/20/17 02:19 Dose: 15 mg Ketorolac Tromethamine (Toradol) 30 mg IVP Q6 PRN PRN Reason: Pain, severe (8-10) - Labs Labs: 06/21/17 05:50 06/21/17 05:50 PT 15.3 Seconds (9.8-13.1) H 06/16/17 23:41 INR 1.4 (0.9-1.2) H 06/16/17 23:41 APTT 35.4 Seconds (25.6-37.1) 06/16/17 23:41 - Constitutional Appears: Non-toxic, No Acute Distress - Head Exam Head Exam: NORMAL INSPECTION - Eye Exam Eye Exam: Normal appearance - ENT Exam ENT Exam: Mucous Membranes Moist - Respiratory Exam Respiratory Exam: NORMAL BREATHING PATTERN. absent: Accessory Muscle Use, Respiratory Distress - Cardiovascular Exam Cardiovascular Exam: absent: Bradycardia, Tachycardia - GI/Abdominal Exam GI & Abdominal Exam: Soft, Tenderness (minimal TTP RLQ). absent: Distended, Firm, Guarding, Rigid, Rebound - Extremities Exam Extremities Exam: Normal Inspection - Neurological Exam Neurological Exam: Alert, Awake, Oriented x3 - Psychiatric Exam Psychiatric exam: Normal Affect, Normal Mood - Skin Skin Exam: Dry, Intact, Normal Color, Warm Assessment and Plan - Assessment and Plan (Free Text) Assessment: 52 y/o M w/ perforated appendicitis - repeat CT revealed abscess formation in RLQ; per IR, abscess inaccessible for drainage - cont IV Abx - ADAT - cont pain management - monitor vitals - GI/DVT PPx - encourage OOB to chair/Amb Pt discussed w/ Dr. Allyson Caldwell DO PGY2 <Eran Valadez - Last Filed: 06/21/17 10:15> Subjective - Date & Time of Evaluation Time of Evaluation: 09:30 - Subjective Subjective: Patient was seen and examined at the bedside. Agree with resident's note above. Objective - Vital Signs/Intake and Output Vital Signs (last 24 hours): Temp Pulse Resp BP Pulse Ox 98.3 F 65 20 142/76 95 06/21/17 08:02 06/21/17 08:02 06/21/17 08:02 06/21/17 08:02 06/21/17 08:02 - Medications Medications: Current Medications Enoxaparin Sodium (Lovenox) 40 mg SC DAILY [facility] PRN Reason: Protocol Last Admin: 06/20/17 09:11 Dose: 40 mg Famotidine (Pepcid) 20 mg PO DAILY [facility] Last Admin: 06/21/17 08:53 Dose: Not Given Dextrose/Sodium Chloride (Dextrose 5%-0.9% Ns 500 Ml) 1,000 mls @ 100 mls/hr IV .Q10H [facility] Last Admin: 06/19/17 22:19 Dose: Not Given Piperacillin Sod/Tazobactam (Sod 3.375 gm/ Sodium Chloride) 100 mls @ 100 mls/ hr IVPB Q6 DAT PRN Reason: Protocol Last Admin: 06/21/17 08:59 Dose: 100 mls/hr Metronidazole (Flagyl 500mg/100ml Ns) 100 mls @ 100 mls/hr IVPB Q8 DAT PRN Reason: Protocol Last Admin: 06/21/17 08:52 Dose: 100 mls/hr Ketorolac Tromethamine (Toradol) 15 mg IVP Q6 PRN PRN Reason: Pain, moderate (4-7) Last Admin: 06/20/17 02:19 Dose: 15 mg Ketorolac Tromethamine (Toradol) 30 mg IVP Q6 PRN PRN Reason: Pain, severe (8-10) - Labs Labs: 06/21/17 05:50 06/21/17 05:50 PT 15.3 Seconds (9.8-13.1) H 06/16/17 23:41 INR 1.4 (0.9-1.2) H 06/16/17 23:41 APTT 35.4 Seconds (25.6-37.1) 06/16/17 23:41
[2017-06-21] MEDS: Famotidine 40 MG/5 ML PO SCH (08:53)
--- NOTE | 2017-06-21 10:02 | CP.PCM.PN ---
Objective - Vital Signs/Intake and Output Vital Signs (last 24 hours): Temp Pulse Resp BP Pulse Ox 98.3 F 65 20 142/76 95 06/21/17 08:02 06/21/17 08:02 06/21/17 08:02 06/21/17 08:02 06/21/17 08:02 - Medications Medications: Current Medications Enoxaparin Sodium (Lovenox) 40 mg SC DAILY DAT PRN Reason: Protocol Last Admin: 06/20/17 09:11 Dose: 40 mg Famotidine (Pepcid) 20 mg PO DAILY [facility] Last Admin: 06/21/17 08:53 Dose: Not Given Dextrose/Sodium Chloride (Dextrose 5%-0.9% Ns 500 Ml) 1,000 mls @ 100 mls/hr IV .Q10H [facility] Last Admin: 06/19/17 22:19 Dose: Not Given Piperacillin Sod/Tazobactam (Sod 3.375 gm/ Sodium Chloride) 100 mls @ 100 mls/ hr IVPB Q6 DAT PRN Reason: Protocol Last Admin: 06/21/17 08:59 Dose: 100 mls/hr Metronidazole (Flagyl 500mg/100ml Ns) 100 mls @ 100 mls/hr IVPB Q8 DAT PRN Reason: Protocol Last Admin: 06/21/17 08:52 Dose: 100 mls/hr Ketorolac Tromethamine (Toradol) 15 mg IVP Q6 PRN PRN Reason: Pain, moderate (4-7) Last Admin: 06/20/17 02:19 Dose: 15 mg Ketorolac Tromethamine (Toradol) 30 mg IVP Q6 PRN PRN Reason: Pain, severe (8-10) - Labs Labs: 06/21/17 05:50 06/21/17 05:50 PT 15.3 Seconds (9.8-13.1) H 06/16/17 23:41 INR 1.4 (0.9-1.2) H 06/16/17 23:41 APTT 35.4 Seconds (25.6-37.1) 06/16/17 23:41 Assessment and Plan - Assessment and Plan (Free Text) Assessment: 52 y/o gent , no significant PMH, presented in the ED with six days of RLQ abdominal pain radiating across the lower abdomen and the periumbilical region. The pain is constant with no relief from [place] or Magnesium Citrate. no fever , chills, nausea, vomits, dysuria nor urinary frequencies. Ct abdomen showed perforated acute appendicitis with abscess 4.5 x 3.1 cm . Patient admitted to med/surg , surgery, ID and IR consulted and started on IV antibiotics. CT of the Abdomen: Perforated appendicitis with 4.5 x 3.1 centimeter lobulated abscess. The entirety of the abscess is located in the right lower quadrant, posterior to a loop of thickened terminal ileum. Terminal ileal and sigmoid thickening is likely reactive. Too small to characterize 6 millimeter hepatic hypodensity. 1. Acute Perforated Appenicitis with abscess formation clinically improving, afebrile, pain resolved WBC trended up today 12 K Continue IV Zosyn and Flagyl Pain mgt Surgery consulted- recommended Drainage of abscess by IR. Dr Lunsford consulted - abscess is posterior to the bowels and not amenable by CT drainage will continue IV antibiotics plan for repeat CT abdomen today advanced diet to regular and tolerating well 2.DVT proph Lovenox
--- NOTE | 2017-06-21 11:17 | CP.PCM.PN ---
Subjective - Date & Time of Evaluation Date of Evaluation: 06/21/17 Time of Evaluation: 09:00 - Subjective Subjective: CT still shows abscess needs IV rx then appendectomy as drainage not possible at present Objective - Vital Signs/Intake and Output Vital Signs (last 24 hours): Temp Pulse Resp BP Pulse Ox 98.3 F 65 20 142/76 95 06/21/17 08:02 06/21/17 08:02 06/21/17 08:02 06/21/17 08:02 06/21/17 08:02 - Medications Medications: Current Medications Enoxaparin Sodium (Lovenox) 40 mg SC DAILY DAT PRN Reason: Protocol Last Admin: 06/20/17 09:11 Dose: 40 mg Famotidine (Pepcid) 20 mg PO DAILY [facility] Last Admin: 06/21/17 08:53 Dose: Not Given Dextrose/Sodium Chloride (Dextrose 5%-0.9% Ns 500 Ml) 1,000 mls @ 100 mls/hr IV .Q10H [facility] Last Admin: 06/19/17 22:19 Dose: Not Given Piperacillin Sod/Tazobactam (Sod 3.375 gm/ Sodium Chloride) 100 mls @ 100 mls/ hr IVPB Q6 DAT PRN Reason: Protocol Last Admin: 06/21/17 08:59 Dose: 100 mls/hr Metronidazole (Flagyl 500mg/100ml Ns) 100 mls @ 100 mls/hr IVPB Q8 DAT PRN Reason: Protocol Last Admin: 06/21/17 08:52 Dose: 100 mls/hr Ketorolac Tromethamine (Toradol) 15 mg IVP Q6 PRN PRN Reason: Pain, moderate (4-7) Last Admin: 06/20/17 02:19 Dose: 15 mg Ketorolac Tromethamine (Toradol) 30 mg IVP Q6 PRN PRN Reason: Pain, severe (8-10) - Labs Labs: 06/21/17 05:50 06/21/17 05:50 PT 15.3 Seconds (9.8-13.1) H 06/16/17 23:41 INR 1.4 (0.9-1.2) H 06/16/17 23:41 APTT 35.4 Seconds (25.6-37.1) 06/16/17 23:41 - Constitutional Appears: Non-toxic, Chronically Ill - Head Exam Head Exam: NORMOCEPHALIC - Eye Exam Eye Exam: PERRL - ENT Exam ENT Exam: Mucous Membranes Dry - Neck Exam Neck Exam: absent: Lymphadenopathy - Respiratory Exam Respiratory Exam: Decreased Breath Sounds - Cardiovascular Exam Cardiovascular Exam: REGULAR RHYTHM - GI/Abdominal Exam GI & Abdominal Exam: Distended, Soft. absent: Tenderness, Organomegaly - Rectal Exam Rectal Exam: Deferred - Exam Exam: NORMAL INSPECTION - Extremities Exam Extremities Exam: absent: Pedal Edema - Back Exam Back Exam: absent: CVA tenderness (L), CVA tenderness (R) - Neurological Exam Neurological Exam: Alert, Awake, Oriented x3 Neuro motor strength exam: Left Upper Extremity: 5, Right Upper Extremity: 5, Left Lower Extremity: 5, Right Lower Extremity: 5 Assessment and Plan (1) Appendicitis with abscess Status: Acute
--- NOTE | 2017-06-21 11:48 | CP.PCM.DIS ---
Provider - Provider Date of Admission: 06/16/17 23:19 Attending physician: Rufino Reid Primary care physician: none Consults: ID consult surgery consult case management consult Time Spent in preparation of Discharge (in minutes): 15 Hospital Course - Lab Results Lab Results: Micro Results 06/16/17 23:45 Blood-Venous Blood Culture - Preliminary NO GROWTH AFTER 4 DAYS 06/16/17 23:30 Blood-Venous Blood Culture - Preliminary NO GROWTH AFTER 4 DAYS Most Recent Lab Values WBC 13.0 K/uL (4.8-10.8) H 06/21/17 05:50 RBC 4.73 Mil/uL (4.40-5.90) 06/21/17 05:50 Hgb 14.5 g/dL (12.0-18.0) 06/21/17 05:50 Hct 44.0 % (35.0-51.0) 06/21/17 05:50 MCV 93.0 fl (80.0-94.0) 06/21/17 05:50 MCH 30.7 pg (27.0-31.0) 06/21/17 05:50 MCHC 33.0 g/dL (33.0-37.0) 06/21/17 05:50 RDW 12.5 % (11.5-14.5) 06/21/17 05:50 Plt Count 339 K/uL (130-400) 06/21/17 05:50 MPV 8.2 fl (7.2-11.7) 06/21/17 05:50 Neut % (Auto) 78.2 % (50.0-75.0) H 06/21/17 05:50 Lymph % (Auto) 15.2 % (20.0-40.0) L 06/21/17 05:50 [place] % (Auto) 4.8 % (0.0-10.0) 06/21/17 05:50 Eos % (Auto) 1.5 % (0.0-4.0) 06/21/17 05:50 Baso % (Auto) 0.3 % (0.0-2.0) 06/21/17 05:50 Neut # 10.2 K/uL (1.8-7.0) H 06/21/17 05:50 Lymph # 2.0 K/uL (1.0-4.3) 06/21/17 05:50 [place] # 0.6 K/uL (0.0-0.8) 06/21/17 05:50 Eos # 0.2 K/uL (0.0-0.7) 06/21/17 05:50 Baso # 0.0 K/uL (0.0-0.2) 06/21/17 05:50 PT 15.3 Seconds (9.8-13.1) H 06/16/17 23:41 INR 1.4 (0.9-1.2) H 06/16/17 23:41 APTT 35.4 Seconds (25.6-37.1) 06/16/17 23:41 Sodium 143 mmol/l (132-148) 06/21/17 05:50 Potassium 4.1 MMOL/L (3.6-5.0) 06/21/17 05:50 Chloride 103 mmol/L (98-107) 06/21/17 05:50 Carbon Dioxide 30 mmol/L (22-30) 06/21/17 05:50 Anion Gap 14 (10-20) 06/21/17 05:50 BUN 9 mg/dl (9-20) 06/21/17 05:50 Creatinine 1.0 mg/dl (0.8-1.5) 06/21/17 05:50 Est GFR ( Amer) > 60 06/21/17 05:50 Est GFR (Non-Af Amer) > 60 06/21/17 05:50 Random Glucose 97 mg/dL (75-110) 06/21/17 05:50 Lactic Acid 0.9 MMOL/L (0.7-2.1) 06/16/17 23:41 Calcium 9.2 mg/dL (8.4-10.2) 06/21/17 05:50 Total Bilirubin 0.6 mg/dl (0.2-1.3) 06/21/17 05:50 AST 46 U/L (17-59) 06/21/17 05:50 ALT 46 U/L (21-72) 06/21/17 05:50 Alkaline Phosphatase 68 U/L (38-126) 06/21/17 05:50 Total Protein 7.6 G/DL (6.3-8.2) 06/21/17 05:50 Albumin 3.8 g/dL (3.5-5.0) 06/21/17 05:50 Globulin 3.8 gm/dL (2.2-3.9) 06/21/17 05:50 Albumin/Globulin Ratio 1.0 (1.0-2.1) 06/21/17 05:50 Lipase 18 U/L (23-300) L 06/16/17 20:26 Blood Type A POSITIVE 06/16/17 23:18 Blood Type Confirm A POSITIVE 06/17/17 00:01 Antibody Screen Negative 06/16/17 23:18 BBK History Checked No verified bt 06/16/17 23:18 - Hospital Course Hospital Course: 52 y/o gent with no significant PMH, presented in the ED with six days of RLQ abdominal pain radiating across the lower abdomen and the periumbilical region. The pain was constant with no relief from [place] or Magnesium Citrate. no fever, chills, nausea, vomits, dysuria nor urinary frequencies. Ct abdomen showed perforated acute appendicitis with abscess 4.5 x 3.1 cm . Patient admitted to med/surg , surgery, ID and IR consulted and started on IV antibiotics.Patient was started on IV Zosyn and Flagyl with clinical improvemnet. As per IR abscess is posterior to bowel not amenable for drainage. Patient received IV antibiotics for 5 days. His pain has resolved , is afebrile WBC [address] abdomen showed slight increase in abscess size but still not possible for drainage as per IR. Discussed with surgery and recommended discharging patient home on IV antibiotics and follow up with surgeon in 1 week Discussed with ID and recommended Invanz 1 g IV daily and flagyl 500 mg po TID Will discharge patient home PIIc line inserted possible lap appendectomy in the future when infection is under control. CT of the Abdomen: Perforated appendicitis with 4.5 x 3.1 centimeter lobulated abscess. The entirety of the abscess is located in the right lower quadrant, posterior to a loop of thickened terminal ileum. Terminal ileal and sigmoid thickening is likely reactive. Too small to characterize 6 millimeter hepatic hypodensity. 1. Acute Perforated Appenicitis with abscess formation clinically improving, afebrile, pain resolved WBC trended up today 13 K received IV Zosyn and Flagyl for 5 days will d/c on invanz 1 G iV daily and flagyl 500 mg po TID Pain mgt Surgery consulted- recommended Drainage of abscess by IR. Dr Lunsford IR consulted - abscess is posterior to the bowels and not amenable by CT drainage ID consulted and case discussed will continue IV antibiotics 2.DVT proph Lovenox Discharge Exam - Head Exam Head Exam: ATRAUMATIC, NORMAL INSPECTION, NORMOCEPHALIC - Eye Exam Eye Exam: EOMI, Normal appearance, PERRL Pupil Exam: NORMAL ACCOMODATION - ENT Exam ENT Exam: Mucous Membranes Moist, Normal Exam - Neck Exam Neck exam: Full Rom, Normal Inspection - Respiratory Exam Respiratory Exam: Clear to PA & Lateral, NORMAL BREATHING PATTERN. absent: Rales, Rhonchi, Wheezes - Cardiovascular Exam Cardiovascular Exam: REGULAR RHYTHM, RRR, +S1, +S2. absent: JVD - GI/Abdominal Exam GI & Abdominal Exam: Normal Bowel Sounds, Soft. absent: Distended, Guarding, Rebound, Tenderness - Rectal Exam Rectal Exam: Deferred - Extremities Exam Extremities exam: normal capillary refill, normal inspection, pedal pulses present - Back Exam Back exam: NORMAL INSPECTION - Neurological Exam Neurological exam: Alert, CN II-XII Intact, Oriented x3, Reflexes Normal - Psychiatric Exam Psychiatric exam: Normal Affect, Normal Mood - Skin Skin Exam: Dry, Intact, Normal Color, Warm Discharge Plan - Discharge Medications Prescriptions: Ertapenem Sodium [Invanz] 1 gm IV DAILY #14 [place]ial[place] [Flagyl] 500 mg PO TID #42 tab - Follow Up Plan Condition: STABLE Disposition: HOME/ ROUTINE Patient education suggested?: Yes Instructions: Peripherally Inserted Central Catheters and Midline Catheters (DC ), Appendicitis (DC) Referrals: Kartik Lopez MD [Staff Provider] - [facility] [Outside]
[2017-06-21] MEDS ORDERED: Lidocaine 1% Inj (20ml) ONE (12:26)
--- NOTE | 2017-06-21 13:03 | PCM.SURG1 ---
Surgeon's Initial Post Op Note - Surgeon's Notes Surgeon: Gen Lunsford MD Model Maker Scale: NONE Type of Anesthesia: Local Pre-Operative Diagnosis: Infection requiring correction IV abx Operative Findings: US showed a patent left basilic vein. Post-Operative Diagnosis: Infection requiring correction IV abx Operation Performed: Single lumen picc placement left basilic vein, 39 cm. Tip of picc is in the SVC. Specimen/Specimens Removed: none Estimated Blood Loss: EBL {In ML}: 2 Blood Products Given: N/A Drains Used: No Drains Post-Op Condition: Fair Date of Surgery/Procedure: 06/21/17 Time of Surgery/Procedure: 13:00
[2017-06-21 13:08] VITALS: RESP 18
[2017-06-21 16:22] VITALS: BP 116/74; PULSE 92; TEMP 98.1; O2SAT 97
== END 2017-06-21 15:45 | disposition home or self-care (01) | DRG 895 ==
LOC: H.ER 19:59 → H.ERHOLD 23:19 → H.MEDSURG1 06-17 00:27
PROVIDERS: ADMIT Internal Medicine; ATTEND Internal Medicine
PROC: 02HV33Z Insertion of Infusion Device into Superior Vena Cava, Percutaneous Approach (ICD-10-PCS; principal; 2017-06-21)
DX: K35.3 Acute appendicitis with localized peritonitis (principal)